=== PATIENT | female | born 1980 | race Caucasian/White ===

== ENCOUNTER 2021-05-08 16:00 | Emergency (ER) | payer OTHER, MEDICARE, SELFPAY ==
[2021-05-08 17:26] VITALS: BP 130/81; PULSE 52; RESP 16; TEMP 37.2; O2SAT 100; BMI 27.4
== END 2021-05-08 19:34 | disposition left against medical advice (07) ==
PROVIDERS: Emergency Provider Emergency Medicine; PCP Internal Medicine
DX: R51.9 Headache, unspecified (principal)
CPT/HCPCS: 99281; 99282

== ENCOUNTER 2021-07-23 10:16 | Outpatient (REF) | payer OTHER, SELFPAY ==
--- NOTE | ~2021-07-23 | XR_ITS ---
EXAMINATION: XR ANKLE, LEFT CLINICAL INFORMATION: Pain. COMPARISON: None TECHNIQUE: AP, lateral, and mortise views of the left ankle. FINDINGS: The bones and soft tissues are normal. No fracture. Alignment is anatomic. Joint spaces are maintained. No joint effusion. XR/XR ankle LT 2V IMPRESSION: Normal left ankle.
--- NOTE | ~2021-07-23 | US_ITS ---
EXAMINATION: US VENOUS ULTRASOUND WITH DOPPLER LOWER EXTREMITY, LEFT CLINICAL INFORMATION: Left leg pain COMPARISON: None TECHNIQUE: Ultrasound of the deep veins is performed from the hip to the calf with compression sonography and color and pulse Doppler assessment. Spectral analysis with color-flow imaging is performed. FINDINGS: There is normal venous compression and respiratory variation and augmented flow. The visualized common femoral vein, superficial femoral vein, profunda femoral vein, popliteal vein, and the trifurcation region shows no evidence of deep venous thrombosis. There is no popliteal fossa cyst. US/US venous duplex LE LT IMPRESSION: No DVT demonstrated in the left lower extremity.
== END 2021-07-23 10:17 | disposition home or self-care (01) ==
LOC: HO.US 10:16
PROVIDERS: PCP Internal Medicine; Visit Provider Internal Medicine
DX: M79.605 Pain in left leg (principal); M25.572 Pain in left ankle and joints of left foot
CPT/HCPCS: 73600; 93971

== ENCOUNTER 2023-05-28 11:48 | Outpatient (AMB) | payer OTHER, SELFPAY ==
[2023-05-28 11:49] VITALS: BP 114/72; PULSE 79; BMI 26.0
--- NOTE | 2023-05-28 11:49 | A.OFFPC_ITS ---
Vital Signs 05/28/23 11:49 Height 5 ft 5 in Weight 156 lb 6 oz BMI 26.0 BP 114/72 Blood Pressure Location Lt brachial Position Sitting Pulse 79 Pulse Source Pulse Oximeter Oxygen Delivery Method Room Air Intake Visit Reasons: Discuss Mental Status-Son's Allergies Penicillins Allergy (Mild, Verified 05/28/23 11:50) HIVES tramadol [Tramadol] Allergy (Unknown, Verified 05/28/23 11:50) HIVES, seizure, seizures clonidine Adverse Reaction (Mild, Verified 05/28/23 11:50) Seizure Wellbutrin Allergy (Unknown, Uncoded 05/28/23 11:50) Seizure Medication List - Last Reconciled 05/28/23 by Akbar Walton MD buprenorphine-naloxone 2-0.5 mg (Suboxone) 2 film buccal DAILY desogestrel-ethinyl estradiol 0.15-0.03 mg (Apri) 1 tab PO DAILY dextroamphetamine-amphetamine 30 mg 1 tab PO DAILY multivitamin with folic acid 400 mcg (Daily-Kate (with folic acid)) 1 tab PO DA ANASTASIIA zolpidem 10 mg PO BEDTIME PRN Tobacco use date assessed: 05/28/23 Dental Screening Dental Screen Date: 05/28/23 Did you have a dental visit in the last 12 months?: Yes Did you have a dental problem in the last 6 months where you did not have access to dental care?: No Was dental information given to patient?: Patient has dentist HPI Discuss Mental Status-Son's HPI Details wants a new psychiatrist; on suboxone, rx for ADHD and sleeping pills PFSH Medical History ADHD Attention deficit disorder IGNACIO (generalized anxiety disorder) Iron deficiency anemia due to chronic blood loss Left ankle pain Left leg pain Migraine Primary insomnia Substance abuse Surgical History History of abdominoplasty History of bilateral carpal tunnel release History of section History of cholecystectomy History of gastric bypass History of tubal ligation Mass of cervix Family History Father No problems noted. Mother No problems noted. Maternal Grandfather Diabetes Other Substance abuse Social History (Reviewed 05/28/23 @ 11:51 by TONI Taylor Housing: House Patient Tobacco Use Status: Never used Tobacco e-Cigarette/Vaping Use: Never Used Second Hand Smoke Exposure: No service: No Current occupational status: employed Cognitive needs: No Hearing needs: No Vision needs: No Questionnaire PHQ-9 Over the last 2 weeks, how often have you been bothered by any of the following problems? 1. Little interest or pleasure in doing things: nearly every day 2. Feeling down, depressed, or hopeless: nearly every day 3. Trouble falling or staying asleep, or sleeping too much: nearly every day 4. Feeling tired or having little energy: nearly every day 5. Poor appetite or overeating: nearly every day 6. Feeling bad about yourself - or that you are a failure or have let yourself or your family down: nearly every day 7. Trouble concentrating on things, such as reading the newspaper or watching television: nearly every day 8. Moving or speaking so slowly that other people could have noticed. Or the opposite - being so fidgety or restless that you have been moving around a lot more than usual: nearly every day 9. Thoughts that you would be better off or of hurting yourself in some way: not at all Total score: 24 Depression Screening Interpretation: Negative Source: Developed by Drs. Sebastián Dumas, Vida Strauss, Maximo Dow and colleagues, with an educational sherley from [employer]. Thrive Questionnaire Date Thrive assessed: 05/28/23 I am a: Patient What is your living situation today?: I have a steady place to live Within the past 12 months, did the food you bought not last and you didn't have the money to get more?: Never true Within the past 12 months, did you worry whether your food would run out before you got money to buy more?: Never true Do you have trouble paying for medicines?: No Do you have trouble getting transportation to medical appointments?: No Do you have trouble paying your heating and electricity bill?: No Do you have trouble taking care of your child, family member or friend?: No Do you have trouble with day-to-day activities such as bathing, preparing meals, shopping, managing finances, etc.?: No Are you currently unemployed and looking for a job?: No Are you interested in more education?: No Please select the resources that you would like help with: None AUDIT C Alcohol Use Questionnaire (AUDIT-C) 1. How often do you have a drink containing alcohol?: Never 3. How often do you have six or more drinks on one occasion?: Never Total Score: 0 IGNACIO-7 AMB Questionnaire IGNACIO-7 Date IGNACIO - 7 assessed: 05/28/23 Feeling nervous, anxious, or on edge: 2 = More than half the days Not being able to stop or control worryin = More than half the days Worrying too much about different things: 2 = More than half the days Trouble relaxin = More than half the days Being so restless that it is hard to sit still: 2 = More than half the days Becoming easily annoyed or irritable: 2 = More than half the days Feeling afraid as if something awful might happen: 2 = More than half the days Total IGNACIO-7 score (0-4 normal; 5-9 mild; 10-14 moderate; 15-21 severe): 14 Source: Developed by Drs. Sebastián Dumas, Vida Strauss, Maximo Dow and colleagues, with an educational sherley from [employer]. Review of Systems Const Denies chills, Denies headache(s) and Denies weight loss ENT Denies headache(s) Card Denies chest pain, Denies syncope, Denies irregular heart rhythm and Denies dyspnea Resp Denies chest congestion, Denies cough and Denies dyspnea GI Denies abdominal pain, Denies change in stool character, Denies nausea and Denies vomiting Musc Denies deformity and Denies joint swelling Neuro Denies syncope and Denies headache(s) Physical exam (Primary Care) Vital Signs: Last Vital Signs Pulse 79 05/28/23 11:49 BP 114/72 05/28/23 11:49 Oxygen Delivery Method Room Air 05/28/23 11:49 BMI result Body Mass Index 26.0 Tobacco/Smoking Status: Tobacco use Status Tobacco use date assessed 05/28/23 05/28/23 11:59 Patient Tobacco Use Status Never used Tobacco 05/28/23 11:59 e-Cigarette/Vaping Use Never Used 05/28/23 11:59 PHQ-9: PHQ-9 Score PHQ-9: Total score 24 05/28/23 11:59 Depression Screening Interpretation: Negative Thrive Assessment: Date of Thrive Assessment Date Thrive assessed 05/28/23 05/28/23 11:59 Const General: cooperative, comfortable and no acute distress HENMT Head: Yes normal to inspection Eyes General: appearance normal, both eyes and all related structures Neck Neck: Yes normal visual inspection Chest Chest palpation & inspection: normal inspection of the chest Resp Effort & Inspection: normal respiratory effort Assessment and Plan Assessment & Plan (1) Attention deficit disorder: Code(s): F98.8 - Other specified behavioral and emotional disorders with onset usually occurring in childhood and adolescence Plan: refer (2) Substance abuse: Code(s): F19.10 - Other psychoactive substance abuse, uncomplicated Plan: per clinic Orders: Orders Comprehensive [place]. Panel Fast Today N28.9 - Disorder of kidney and ureter, unspecified Lipid Panel Today E78.5 - Hyperlipidemia, unspecified Thyroid Stimulating Hormone Today E03.9 - Hypothyroidism, unspecified Complete Blood Count Auto Diff Today D64.9 - Anemia, unspecified Referrals Psychiatry Referral F43.22 - Adjustment disorder with anxiety Medications: New lorazepam 1 mg PO BID PRN 60 tabs 0RF anxiety Coding Level of Care Code Est Pt Level 4 (40919) Diagnoses Attention deficit disorder F98.8 Substance abuse F19.10 Additional Codes PHQ-9 - 20194 - PHQ-9 Billing: Y ([id number])
== END 2023-05-28 12:20 | disposition home or self-care (01) ==
PROVIDERS: PCP Internal Medicine; Visit Provider Internal Medicine
DX: F98.8 Other specified behavioral and emotional disorders with onset usually occurring in childhood and adolescence (principal); F19.10 Other psychoactive substance abuse, uncomplicated
CPT/HCPCS: 99214

== ENCOUNTER 2023-06-09 10:36 | Outpatient (AMB) | payer OTHER, SELFPAY ==
[2023-06-09 10:46] VITALS: BP 110/60; PULSE 75; O2SAT 99
--- NOTE | 2023-06-09 10:46 | A.OFFPC_ITS ---
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 per policy Accompanied by: Self / Same As Patient Allergies Penicillins Allergy (Mild, Verified 06/09/23 10:46) HIVES tramadol [Tramadol] Allergy (Unknown, Verified 06/09/23 10:46) HIVES, seizure, seizures clonidine Adverse Reaction (Mild, Verified 06/09/23 10:46) Seizure Wellbutrin Allergy (Unknown, Uncoded 06/09/23 10:46) Seizure Medication List - Last Reconciled 06/09/23 by Akbar Walton MD buprenorphine-naloxone 2-0.5 mg (Suboxone) 2 film buccal DAILY desogestrel-ethinyl estradiol 0.15-0.03 mg (Apri) 1 tab PO DAILY dextroamphetamine-amphetamine 30 mg 1 tab PO DAILY lorazepam 1 mg PO BID PRN multivitamin with folic acid 400 mcg (Daily-Kate (with folic acid)) 1 tab PO DAILY zolpidem 10 mg PO BEDTIME PRN Tobacco use date assessed: 05/28/23 Dental Screening Dental Screen Date: 06/09/23 Did you have a dental visit in the last 12 months?: Yes Did you have a dental problem in the last 6 months where you did not have access to dental care?: No Was dental information given to patient?: Patient has dentist HPI Pe HPI Details substance abuse on suboxone; ADHD and sees psych PFSH Medical History ADHD Attention deficit disorder IGNACIO (generalized anxiety disorder) Iron deficiency anemia due to chronic blood loss Left ankle pain Left leg pain Migraine Primary insomnia Substance abuse Surgical History History of abdominoplasty History of bilateral carpal tunnel release History of section History of cholecystectomy History of gastric bypass History of tubal ligation Mass of cervix Family History Father No problems noted. Mother No problems noted. Maternal Grandfather Diabetes Other Substance abuse Social History Housing: House Patient Tobacco Use Status: Never used Tobacco e-Cigarette/Vaping Use: Never Used Second Hand Smoke Exposure: No service: No Current occupational status: employed Cognitive needs: No Hearing needs: No Vision needs: No Questionnaire PHQ-9 Over the last 2 weeks, how often have you been bothered by any of the following problems? 1. Little interest or pleasure in doing things: nearly every day 2. Feeling down, depressed, or hopeless: nearly every day 3. Trouble falling or staying asleep, or sleeping too much: nearly every day 4. Feeling tired or having little energy: nearly every day 5. Poor appetite or overeating: nearly every day 6. Feeling bad about yourself - or that you are a failure or have let yourself or your family down: nearly every day 7. Trouble concentrating on things, such as reading the newspaper or watching television: nearly every day 8. Moving or speaking so slowly that other people could have noticed. Or the opposite - being so fidgety or restless that you have been moving around a lot more than usual: nearly every day 9. Thoughts that you would be better off or of hurting yourself in some way: not at all Total score: 24 Depression Screening Interpretation: Negative 72274 - PHQ-9 Billing: Yes Source: Developed by Drs. Sebastián Dumas, Maximo Maurer and colleagues, with an educational sherley from [employer]. Thrive Questionnaire Date Thrive assessed: 05/28/23 AUDIT C Alcohol Use Questionnaire (AUDIT-C) 1. How often do you have a drink containing alcohol?: Never 3. How often do you have six or more drinks on one occasion?: Never Total Score: 0 IGNACIO-7 AMB Questionnaire IGNACIO-7 Date IGNACIO - 7 assessed: 05/28/23 Source: Developed by Drs. Sebastián Dumas, Maximo Maurer and colleagues, with an educational sherley from [employer]. Review of Systems Const Denies chills, Denies fatigue, Denies headache(s) and Denies weight loss Eyes Denies change in vision, Denies diplopia and Denies eye pain ENT Denies vertigo, Denies dizziness, Denies headache(s) and Denies nasal discharge Card Denies chest pain, Denies rapid heart rate and Denies dyspnea on exertion Resp Denies chest congestion, Denies cough, Denies pain with cough and Denies dyspnea on exertion GI Denies abdominal pain, Denies hematochezia and Denies change in bowel habits Musc Denies myalgias, Denies arthralgias and Denies joint swelling Skin/Breast Denies lesions and Denies unusual bruising Neuro Denies vertigo, Denies dizziness, Denies headache(s) and Denies focal weakness Endo Denies fatigue Physical exam (Primary Care) Vital Signs: Last Vital Signs Pulse 75 06/09/23 10:46 BP 110/60 06/09/23 10:46 Pulse Ox 99 06/09/23 10:46 Oxygen Delivery Method Room Air 06/09/23 10:46 Tobacco/Smoking Status: Tobacco use Status Tobacco use date assessed 05/28/23 06/09/23 10:51 Patient Tobacco Use Status Never used Tobacco 06/09/23 10:51 e-Cigarette/Vaping Use Never Used 06/09/23 10:51 PHQ-9: PHQ-9 Score PHQ-9: Total score 24 06/09/23 10:51 Depression Screening Interpretation: Negative Thrive Assessment: Date of Thrive Assessment Date Thrive assessed 05/28/23 06/09/23 10:51 Const General: cooperative, healthy appearing and no acute distress Orientation/consciousness: oriented to person, oriented to place and oriented to time [facility] Head: Yes normal to inspection, Yes normocephalic and Yes atraumatic Mouth: Normal oral and palatal mucosa present and tongue normal Throat: Yes posterior oropharynx normal and Yes uvula midline Eyes General: appearance normal, both eyes and all related structures Neck Neck: Yes normal visual inspection, Yes full ROM and Yes no lymphadenopathy Thyroid: Thyroid normal Carotids: normal carotid upstroke Chest Chest palpation & inspection: normal inspection of the chest Resp Effort & Inspection: normal respiratory effort and able to speak in complete sentences Auscultation: clear to auscultation bilaterally Cardio Jugular venous distension: no JVD Palpation: normal PMI Rate: regular rate Rhythm: regular rhythm Heart sounds: S1 normal heart sound present and S2 normal heart sound present GI Inspection: Yes normal to inspection Palpation (GI): Soft to palpation and No hepatosplenomegaly present Auscultation: normal bowel sounds General: Yes no CVA tenderness Back/Spine/Pelvis Back: no CVA tenderness Skin General skin exam: no rashes or lesions noted Neuro General: oriented to person, oriented to place and oriented to time Extrem General: Yes normal to inspection and Yes full ROM Assessment and Plan Assessment & Plan (1) Physical exam: Code(s): Z00.00 - Encounter for general adult medical examination without abnormal findings Plan: do labs (2) Substance abuse: Code(s): F19.10 - Other psychoactive substance abuse, uncomplicated Plan: stable (3) Attention deficit disorder: Code(s): F98.8 - Other specified behavioral and emotional disorders with onset usually occurring in childhood and adolescence Plan: per psych Coding Level of Care Code Est Pt Prev Care 40-64y(47062) Diagnoses Physical exam Z00.00 Substance abuse F19.10 Attention deficit disorder F98.8
== END 2023-06-09 11:07 | disposition home or self-care (01) ==
PROVIDERS: PCP Internal Medicine; Visit Provider Internal Medicine
DX: Z00.00 Encounter for general adult medical examination without abnormal findings (principal); F19.10 Other psychoactive substance abuse, uncomplicated; F98.8 Other specified behavioral and emotional disorders with onset usually occurring in childhood and adolescence
CPT/HCPCS: 99396

== ENCOUNTER 2024-01-27 10:33 | Outpatient (AMB) | payer MEDICARE, SELFPAY ==
[2024-01-27 10:35] VITALS: BP 122/80; PULSE 90; O2SAT 100; BMI 27.3
--- NOTE | 2024-01-27 10:35 | A.OFFPC_ITS ---
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 Accompanied by: Self / Same As Patient Allergies Penicillins Allergy (Mild, Verified 01/27/24 10:36) HIVES tramadol [Tramadol] Allergy (Unknown, Verified 01/27/24 10:36) HIVES, seizure, seizures clonidine Adverse Reaction (Mild, Verified 01/27/24 10:36) Seizure Wellbutrin Allergy (Unknown, Uncoded 01/27/24 10:36) Seizure Medication List - Last Reconciled 01/28/24 by Akbar Walton MD buprenorphine-naloxone 2-0.5 mg (Suboxone) 2 film buccal DAILY desogestrel-ethinyl estradiol 0.15-0.03 mg (Apri) 1 tab PO DAILY dextroamphetamine-amphetamine 30 mg 1 tab PO DAILY lorazepam 1 mg PO BID PRN multivitamin with folic acid 400 mcg (Daily-Kate (with folic acid)) 1 tab PO DAILY zolpidem 10 mg PO BEDTIME PRN Tobacco use date assessed: 01/27/24 Dental Screening Dental Screen Date: 01/27/24 Did you have a dental visit in the last 12 months?: Yes Did you have a dental problem in the last 6 months where you did not have access to dental care?: No Was dental information given to patient?: Patient has dentist HPI Follow-Up HPI Details substance abuse on rx; seems to be doing well [facility] Medical History ADHD Attention deficit disorder IGNACIO (generalized anxiety disorder) Iron deficiency anemia due to chronic blood loss Left ankle pain Left leg pain Migraine Primary insomnia Substance abuse Surgical History History of abdominoplasty History of bilateral carpal tunnel release History of section History of cholecystectomy History of gastric bypass History of tubal ligation Mass of cervix Family History Father No problems noted. Mother No problems noted. Maternal Grandfather Diabetes Other Substance abuse Social History Housing: House Patient Tobacco Use Status: Never used Tobacco e-Cigarette/Vaping Use: Never Used Second Hand Smoke Exposure: No service: No Current occupational status: employed Cognitive needs: No Hearing needs: No Vision needs: No Questionnaire PHQ-9 Over the last 2 weeks, how often have you been bothered by any of the following problems? 1. Little interest or pleasure in doing things: nearly every day 2. Feeling down, depressed, or hopeless: nearly every day 3. Trouble falling or staying asleep, or sleeping too much: nearly every day 4. Feeling tired or having little energy: nearly every day 5. Poor appetite or overeating: nearly every day 6. Feeling bad about yourself - or that you are a failure or have let yourself or your family down: nearly every day 7. Trouble concentrating on things, such as reading the newspaper or watching television: nearly every day 8. Moving or speaking so slowly that other people could have noticed. Or the opposite - being so fidgety or restless that you have been moving around a lot more than usual: nearly every day 9. Thoughts that you would be better off or of hurting yourself in some way: not at all Total score: 24 Depression Screening Interpretation: Negative Depression Screening Done: Yes 41427 - PHQ-9 Billing: Yes Source: Developed by Drs. Sebastián Dumas, Vida Strauss, Maximo Dow and colleagues, with an educational sherley from [employer] Thrive Questionnaire Date Thrive assessed: 01/27/24 I am a: Patient What is your living situation today?: I have a steady place to live Within the past 12 months, did the food you bought not last and you didn't have the money to get more?: Never true Within the past 12 months, did you worry whether your food would run out before you got money to buy more?: Never true Do you have trouble paying for medicines?: No Do you have trouble getting transportation to medical appointments?: No Do you have trouble paying your heating and electricity bill?: No Do you have trouble taking care of your child, family member or friend?: No Do you have trouble with day-to-day activities such as bathing, preparing meals, shopping, managing finances, etc.?: No Are you currently unemployed and looking for a job?: No Are you interested in more education?: No Please select the resources that you would like help with: None THRIVE Score: 0 AUDIT C Alcohol Use Questionnaire (AUDIT-C) 1. How often do you have a drink containing alcohol?: Never 3. How often do you have six or more drinks on one occasion?: Never Total Score: 0 IGNACIO-7 AMB Questionnaire IGNACIO-7 Date IGNACIO - 7 assessed: 01/27/24 Feeling nervous, anxious, or on edge: 0 = Not at all Not being able to stop or control worryin = Not at all Worrying too much about different things: 0 = Not at all Trouble relaxin = Not at all Being so restless that it is hard to sit still: 0 = Not at all Becoming easily annoyed or irritable: 0 = Not at all Feeling afraid as if something awful might happen: 0 = Not at all Total IGNACIO-7 score (0-4 normal; 5-9 mild; 10-14 moderate; 15-21 severe): 0 Source: Developed by Drs. Sebastián Dumas, Vida Strauss, Maximo Dow and colleagues, with an educational sherley from [employer]. Review of Systems Const Denies chills, Denies headache(s) and Denies weight loss ENT Denies headache(s) Card Denies chest pain, Denies syncope, Denies irregular heart rhythm and Denies dyspnea Resp Denies chest congestion, Denies cough and Denies dyspnea GI Denies abdominal pain, Denies change in stool character, Denies nausea and Denies vomiting Musc Denies deformity and Denies joint swelling Neuro Denies syncope and Denies headache(s) Physical exam (Primary Care) Vital Signs: Last Vital Signs Pulse 90 01/27/24 10:35 BP 122/80 01/27/24 10:35 Pulse Ox 100 01/27/24 10:35 Oxygen Delivery Method Room Air 01/27/24 10:35 BMI result Body Mass Index 27.3 Tobacco/Smoking Status: Tobacco use Status Tobacco use date assessed 01/27/24 01/27/24 10:37 Patient Tobacco Use Status Never used Tobacco 01/27/24 10:37 e-Cigarette/Vaping Use Never Used 01/27/24 10:37 PHQ-9: PHQ-9 Score PHQ-9: Total score 24 01/27/24 10:37 Depression Screening Interpretation: Negative Thrive Assessment: Date of Thrive Assessment Date Thrive assessed 01/27/24 01/27/24 10:37 Const General: cooperative, comfortable, no acute distress and alert Neck Neck: Yes no lymphadenopathy Thyroid: Thyroid normal Resp Effort & Inspection: normal respiratory effort Auscultation: clear to auscultation bilaterally Percussion: percussion normal Cardio Jugular venous distension: no JVD Palpation: normal PMI Rate: regular rate Rhythm: regular rhythm Heart sounds: S1 normal heart sound present and S2 normal heart sound present GI Inspection: Yes normal to inspection Palpation (GI): No hepatosplenomegaly present Skin General skin exam: no rashes or lesions noted Extrem General: Yes no clubbing, cyanosis or edema Assessment and Plan Assessment & Plan (1) Substance abuse: Code(s): F19.10 - Other psychoactive substance abuse, uncomplicated Plan: stable; same rx Medications: Refilled lorazepam 1 mg PO BID PRN 60 tabs 0RF anxiety Coding Level of Care Code Est Pt Level 3 (47772) Diagnoses Substance abuse F19.10
== END 2024-01-27 11:58 | disposition home or self-care (01) ==
PROVIDERS: PCP Internal Medicine; Visit Provider Internal Medicine
DX: F19.10 Other psychoactive substance abuse, uncomplicated (principal)
CPT/HCPCS: 99213

== ENCOUNTER 2024-02-26 10:56 | Outpatient (REF) | payer MEDICARE, SELFPAY | END 2024-02-26 10:57 | disposition home or self-care (01) | LOC: HO.LAB 10:56 | PROVIDERS: PCP Internal Medicine; Visit Provider Internal Medicine | DX: F41.1 Generalized anxiety disorder (principal) | CPT/HCPCS: 87086; 87088; 87186 ==

== ENCOUNTER 2024-04-01 13:02 | Outpatient (AMB) | payer MEDICARE, SELFPAY ==
[2024-04-01 13:06] VITALS: BP 102/60; PULSE 66; O2SAT 99; BMI 28.0
--- NOTE | 2024-04-01 13:06 | MHC.PC.OV ---
Vital Signs 04/01/24 13:06 Height 5 ft 5 in Weight 168 lb BMI 28.0 BP 102/60 Blood Pressure Location Lt brachial Position Sitting Pulse 66 Pulse Source Pulse Oximeter Pulse Oximetry (%) 99 Oxygen Delivery Method Room Air Intake Visit Reasons: [facility] 03/28/24 edema Central Supply Worker Required: No Tack Cutter: Not Required per policy Accompanied by: Self / Same As Patient Allergies Penicillins Allergy (Mild, Verified 04/01/24 13:06) HIVES tramadol [Tramadol] Allergy (Unknown, Verified 04/01/24 13:06) HIVES, seizure, seizures clonidine Adverse Reaction (Mild, Verified 04/01/24 13:06) Seizure Wellbutrin Allergy (Unknown, Uncoded 04/01/24 13:06) Seizure Medication List - Last Reconciled 04/04/24 by Akbar Walton MD buprenorphine-naloxone 2-0.5 mg (Suboxone) 2 film buccal DAILY desogestrel-ethinyl estradiol 0.15-0.03 mg (Apri) 1 tab PO DAILY dextroamphetamine-amphetamine 30 mg 1 tab PO DAILY lorazepam 1 mg PO BID PRN multivitamin with folic acid 400 mcg (Daily-Kate (with folic acid)) 1 tab PO DAILY zolpidem 10 mg PO BEDTIME PRN Tobacco use date assessed: 01/27/24 Dental Screening Dental Screen Date: 01/27/24 HPI [facility] 03/28/24 edema HPI Details chronic anemia; had 4U prcs at [facility] [place]; iron def duse to gastric bypass [facility] Medical History ADHD Attention deficit disorder IGNACIO (generalized anxiety disorder) Iron deficiency anemia due to chronic blood loss Left ankle pain Left leg pain Migraine Primary insomnia Substance abuse Surgical History History of abdominoplasty History of bilateral carpal tunnel release History of section History of cholecystectomy History of gastric bypass History of tubal ligation Mass of cervix Family History Father No problems noted. Mother No problems noted. Maternal Grandfather Diabetes Other Substance abuse Social History Housing: House Patient Tobacco Use Status: Never used Tobacco e-Cigarette/Vaping Use: Never Used Second Hand Smoke Exposure: No service: No Current occupational status: employed Cognitive needs: No Hearing needs: No Vision needs: No Questionnaire Thrive Questionnaire Date Thrive assessed: 01/27/24 IGNACIO-7 AMB Questionnaire IGNACIO-7 Date IGNACIO - 7 assessed: 01/27/24 Source: Developed by Drs. Sebastián Dumas, Vida Strauss, Maximo Dow and colleagues, with an educational sherley from [employer]. Review of Systems Const Denies chills, Denies headache(s) and Denies weight loss ENT Denies headache(s) Card Denies chest pain, Denies syncope, Denies irregular heart rhythm and Denies dyspnea Resp Denies chest congestion, Denies cough and Denies dyspnea GI Denies abdominal pain, Denies change in stool character, Denies nausea and Denies vomiting Musc Denies deformity and Denies joint swelling Neuro Denies syncope and Denies headache(s) Physical exam (Primary Care) Vital Signs: Last Vital Signs Pulse 66 04/01/24 13:06 BP 102/60 04/01/24 13:06 Pulse Ox 99 04/01/24 13:06 Oxygen Delivery Method Room Air 04/01/24 13:06 BMI result Body Mass Index 28.0 Tobacco/Smoking Status: Tobacco use Status Tobacco use date assessed 01/27/24 04/01/24 13:07 Patient Tobacco Use Status Never used Tobacco 04/01/24 13:07 e-Cigarette/Vaping Use Never Used 04/01/24 13:07 Thrive Assessment: Date of Thrive Assessment Date Thrive assessed 01/27/24 04/01/24 13:07 Const General: cooperative, comfortable, no acute distress and alert Neck Neck: Yes no lymphadenopathy Thyroid: Thyroid normal Resp Effort & Inspection: normal respiratory effort Auscultation: clear to auscultation bilaterally Percussion: percussion normal Cardio Jugular venous distension: no JVD Palpation: normal PMI Rate: regular rate Rhythm: regular rhythm Heart sounds: S1 normal heart sound present and S2 normal heart sound present GI Inspection: Yes normal to inspection Palpation (GI): No hepatosplenomegaly present Skin General skin exam: no rashes or lesions noted Extrem General: Yes no clubbing, cyanosis or edema Assessment and Plan Assessment & Plan (1) Iron deficiency anemia due to chronic blood loss: Code(s): D50.0 - Iron deficiency anemia secondary to blood loss (chronic) Plan: same rx; monitor Orders: Orders Basic Metabolic Panel 04/01/24 R60.0 - Localized edema Complete Blood Count Auto Diff 04/01/24 Z13.0 - Encounter for screening for diseases of the blood and blood-forming organs and certain disorders involving the immune mechanism Coding Level of Care Code Est Pt Level 3 (56120) Diagnoses Iron deficiency anemia due to chronic blood loss D50.0
== END 2024-04-01 16:24 | disposition home or self-care (01) ==
PROVIDERS: PCP Internal Medicine; Visit Provider Internal Medicine
DX: D50.0 Iron deficiency anemia secondary to blood loss (chronic) (principal)
CPT/HCPCS: 99213

== ENCOUNTER 2024-04-01 13:32 | Outpatient (REF) | payer MEDICARE, SELFPAY ==
[2024-04-01 14:07] LABS: Basophils Percent Auto 0.7 % (0-2); Eosinophils Absolute Auto 0.1 X10*3/uL (0.0-0.4); Eosinophils Percent Auto 2.8 % (0-4); Hematocrit 29.5 % (37.0-47.0); Imm Gran Abs Auto 0.01 X10*3/uL (0.00-0.03); Imm Gran Pct Auto 0.2 % (0.0-0.4); Lymphocytes Absolute Auto 1.4 X10*3/uL (1.2-4.9); Lymphocytes Percent Auto 32.5 % (20-40); MANUAL DIFF FLAG SCAN; Mean Corpuscular HGB Conc 27.1 g/dl (31.0-35.0); Mean Corpuscular Hemoglobin 17.8 pg (27.0-33.0); Mean Corpuscular Volume 65.7 fL (80.0-98.0); Mean Platelet Volume 9.5 fL (9.4-12.3); Monocytes Absolute Auto 0.3 X10*3/uL (0.1-1.2); Monocytes Percent Auto 7.1 % (2-11); Neutrophils Absolute Auto 2.5 x10*3/uL (2.0-8.3); Neutrophils Percent Auto 56.7 % (45-73); PLT CLUMP 1; Red Blood Count 4.49 X10*6/uL (4.20-5.50); Red Cell Distribution Width 21.3 % (11.0-16.0); SCAN SMEAR FLAG 1
[2024-04-01 14:08] LABS: White Blood Count 4.3 X10*3/uL (4.8-10.8)
[2024-04-01 14:26] LABS: Platelet Count 225 X10*3/uL (160-400); SLIDE REVIEW VERIFIED
[2024-04-01 14:40] LABS: Anion Gap 13 (12-20); Blood Urea Nitrogen 11 mg/dL (9-16); Calcium 8.7 mg/dL (8.4-10.2); Carbon Dioxide 28 mmol/L (22-29); Chloride 102 mmol/L (96-108); Estimated Glomerular Filt Rate > 60; Glucose Random 86 mg/dL (60-115); Potassium 4.5 mmol/L (3.3-5.1); Sodium 138 mmol/L (135-145)
== END 2024-04-01 13:33 | disposition home or self-care (01) ==
LOC: HO.LAB 13:32
PROVIDERS: PCP Internal Medicine; Visit Provider Internal Medicine
DX: R60.0 Localized edema (principal); Z13.0 Encounter for screening for diseases of the blood and blood-forming organs and certain disorders involving the immune mechanism
CPT/HCPCS: 36415; 80048; 85025

== ENCOUNTER → 2024-06-15 09:45 | Outpatient (BNVA) | payer MEDICARE, SELFPAY | PROVIDERS: PCP Internal Medicine ==

== ENCOUNTER 2024-06-22 10:45 | Outpatient (AMB) | payer MEDICARE, SELFPAY ==
--- NOTE | 2024-06-22 10:45 | MHC.PC.OV ---
Vital Signs 06/22/24 10:49 Height 5 ft 5 in Weight 179 lb BMI 29.8 BP 140/80 H Blood Pressure Location Lt brachial Position Sitting Pulse 74 Pulse Source Pulse Oximeter Pulse Oximetry (%) 100 Oxygen Delivery Method Room Air Intake Visit Reasons: Bi-lateral edema on feet Intake Note: pt states bilateral let swelling with no relief. Pt states incontinence X2 months Allergies Penicillins Allergy (Mild, Verified 06/22/24 11:07) HIVES tramadol [Tramadol] Allergy (Unknown, Verified 06/22/24 11:07) HIVES, seizure, seizures clonidine Adverse Reaction (Mild, Verified 06/22/24 11:07) Seizure Wellbutrin Allergy (Unknown, Uncoded 06/22/24 11:07) Seizure Medication List - Last Reconciled 06/22/24 by Monica Esquivel PA-C buprenorphine-naloxone 2-0.5 mg (Suboxone) 2 film buccal DAILY dextroamphetamine-amphetamine 30 mg 1 tab PO DAILY lemborexant (Dayvigo) 10 mg PO BEDTIME multivitamin with folic acid 400 mcg (Daily-Kate (with folic acid)) 1 tab PO DAILY Tobacco use date assessed: 01/27/24 Dental Screening Dental Screen Date: 01/27/24 HPI Bi-lateral edema on feet HPI Details 43-year-old female with past medical history of ADHD, generalized anxiety disorder, iron deficiency anemia, substance use disorder last seen by Dr. Walton coming in for acute problem.In review of the notes, patient was seen in [facility] 03/28/2024 for leg swelling and shortness of breath on exertion found to be profoundly anemic and given 1 unit packed red blood cell with normalization of H&H. Hospital advised outpatient workup for anemia and recommended outpatient echocardiogram and referral to Cardiology. She does have an appointment scheduled for cardiology coming up in June. Patient tells us today she has been having swelling in the calves and feet which we will occasionally improve and does improve with compression stockings. She has not yet had her echocardiogram scheduled. She also mentioned she has been been having episodes of urinary incontinence and feels she can not tell when she has to use the bathroom and we will just void urine. Has been going on for several months and has identified any triggers or relieving factors. COUNTS INCLUDE 234 BEDS AT THE [facility] Medical History ADHD Attention deficit disorder IGNACIO (generalized anxiety disorder) Iron deficiency anemia due to chronic blood loss Left ankle pain Left leg pain Migraine Primary insomnia Substance abuse Surgical History History of abdominoplasty History of bilateral carpal tunnel release History of section History of cholecystectomy History of gastric bypass History of tubal ligation Mass of cervix Family History Father No problems noted. Mother No problems noted. Maternal Grandfather Diabetes Other Substance abuse Social History Housing: House Patient Tobacco Use Status: Never used Tobacco e-Cigarette/Vaping Use: Never Used Second Hand Smoke Exposure: No service: No Current occupational status: employed Cognitive needs: No Hearing needs: No Vision needs: No Questionnaire Thrive Questionnaire Date Thrive assessed: 01/27/24 IGNACIO-7 AMB Questionnaire IGNACIO-7 Date IGNACIO - 7 assessed: 01/27/24 Source: Developed by Drs. Sebastián Dumas, Vida Strauss, Maximo Dow and colleagues, with an educational sherley from [employer]. Review of Systems Const Denies chills, Denies fatigue and Denies fever(s) Eyes Reports no additional complaints ENT Reports no additional complaints Card Denies chest pain, Denies irregular heart rhythm, Reports leg edema, Denies lightheadedness and Denies dyspnea Resp Denies cough and Denies dyspnea GI Reports no additional complaints Reports as per HPI Musc Reports no additional complaints Endo Denies fatigue Physical exam (Primary Care) Vital Signs: Last Vital Signs Pulse 74 06/22/24 10:49 BP 140/80 H 06/22/24 10:49 Pulse Ox 100 06/22/24 10:49 Oxygen Delivery Method Room Air 06/22/24 10:49 BMI result Body Mass Index 29.8 Tobacco/Smoking Status: Tobacco use Status Tobacco use date assessed 01/27/24 06/22/24 10:46 Patient Tobacco Use Status Never used Tobacco 06/22/24 10:46 e-Cigarette/Vaping Use Never Used 06/22/24 10:46 Thrive Assessment: Date of Thrive Assessment Date Thrive assessed 01/27/24 06/22/24 10:46 Const General: cooperative, healthy appearing, comfortable and no acute distress Orientation/consciousness: patient oriented x3 HENKS Head: Yes normocephalic Ears: hearing grossly normal bilaterally General nose exam: Normal external nose present Eyes General: appearance normal, both eyes and all related structures Conjunctivae: conjunctivae normal Neck Neck: Yes full ROM and Yes no lymphadenopathy Resp Effort & Inspection: normal respiratory effort Auscultation: clear to auscultation bilaterally, no crackles, no rales, no rhonchi and no wheezes Cardio Rate: regular rate Rhythm: regular rhythm GI Palpation (GI): Soft to palpation, not firm, nontender, no guarding and not rigid General: Yes no CVA tenderness Back/Spine/Pelvis Back: no CVA tenderness Skin General skin exam: no rashes or lesions noted Neuro General: patient oriented x3 Gait exam (Neuro): Normal gait present Extrem Other: Bilateral nonpitting edema of lower extremities with intact pulses, strength, sensation. No redness or warmth of bilateral calves. General: Yes normal to inspection, Yes full ROM and No edema Psych Affect: normal affect Attitude: cooperative Insight: Good insight present (Psych) Judgement: Good judgement present (Psych) Assessment and Plan Assessment & Plan (1) Edema leg: Code(s): R60.0 - Localized edema Plan: Patient has been having chronic nonpitting bilateral leg edema for several months that will wax and wane. She was seen by [facility] and was advised to have outpatient echocardiogram which order was placed today. She is also scheduled to see Cardiology this June. Advised patient to use compression stockings, elevate the legs, and exercise as tolerated. (2) Anemia: Code(s): D64.9 - Anemia, unspecified Plan: Ordered for updated blood work including vitamin B12, folate, iron panel for further evaluation of anemia. Patient is status post gastric bypass which could be a contributing factor to her anemia. In the hospital she was told she did not respond to oral iron and would potentially need iron infusions in the future. Consider referral to Hematology. (3) Urinary incontinence: Code(s): R32 - Unspecified urinary incontinence Plan: Patient describes symptoms of possible overflow incontinence we will order for urinalysis and can consider medical management or further imaging. Plan This note was constructed using voice recognition software. While every effort has been made to ensure accuracy and geospatial program management officer, still areas may have been included sometimes these areas may affect the content or meeting of the given symptoms. Total time spent caring for the patient today was 30 minutes. This includes time spent before the visit reviewing the chart, time spent during the visit, and time spent after the visit and documentation. Orders: Orders CA echo transthoracic complete Today D50.0 - Iron deficiency anemia secondary to blood loss (chronic), R60.0 - Localized edema Lipid Panel Today E78.5 - Hyperlipidemia, unspecified TSH reflex Free T4 Today Z00.00 - Encounter for general adult medical examination without abnormal findings IRON PROFILE Today D50.0 - Iron deficiency anemia secondary to blood loss (chronic) Complete Blood Count Auto Diff Today D64.9 - Anemia, unspecified Comprehensive [place]. Panel Fast Today N28.9 - Disorder of kidney and ureter, unspecified Free T4 (Free Thyroxine) Today Z00.00 - Encounter for general adult medical examination without abnormal findings Vitamin B12 and Folate Today Z00.00 - Encounter for general adult medical examination without abnormal findings Vitamin D 25-OH (D2 and D3) Today Z00.00 - Encounter for general adult medical examination without abnormal findings Magnesium Today R60.0 - Localized edema UA CC w/rflx Micro + Cult Today R35.89 - Other polyuria Coding Level of Care Code Est Pt Level 4 (14928) Diagnoses Edema leg R60.0 Anemia D64.9 Urinary incontinence R32
[2024-06-22 10:49] VITALS: BP 140/80; PULSE 74; O2SAT 100; BMI 29.8
== END 2024-06-22 11:56 | disposition home or self-care (01) ==
PROVIDERS: PCP Internal Medicine
DX: R60.0 Localized edema (principal); D64.9 Anemia, unspecified; R32 Unspecified urinary incontinence

== ENCOUNTER → 2024-06-22 10:45 | Outpatient (BNVA) | payer MEDICARE, SELFPAY | PROVIDERS: PCP Internal Medicine | DX: R60.0 Localized edema (principal); D64.9 Anemia, unspecified; R32 Unspecified urinary incontinence | CPT/HCPCS: 99212 ==

== ENCOUNTER 2024-06-27 10:22 | Outpatient (REF) | payer MEDICARE, SELFPAY ==
[2024-06-27 10:39] LABS: MANUAL DIFF FLAG NO
[2024-06-27 11:03] LABS: Basophils Percent Auto 0.8 % (0-2); Eosinophils Absolute Auto 0.1 X10*3/uL (0.0-0.4); Eosinophils Percent Auto 2.3 % (0-4); Hematocrit 29.7 % (37.0-47.0); Hemoglobin 7.9 g/dl (12.0-16.0); Imm Gran Abs Auto 0.01 X10*3/uL (0.00-0.03); Imm Gran Pct Auto 0.3 % (0.0-0.4); Lymphocytes Absolute Auto 1.1 X10*3/uL (1.2-4.9); Mean Corpuscular HGB Conc 26.6 g/dl (31.0-35.0); Mean Corpuscular Hemoglobin 17.6 pg (27.0-33.0); Mean Corpuscular Volume 66.3 fL (80.0-98.0); Monocytes Absolute Auto 0.3 X10*3/uL (0.1-1.2); Monocytes Percent Auto 8.7 % (2-11); Neutrophils Percent Auto 56.9 % (45-73); Platelet Count 240 X10*3/uL (160-400); Red Blood Count 4.48 X10*6/uL (4.20-5.50); Red Cell Distribution Width 17.2 % (11.0-16.0); White Blood Count 3.6 X10*3/uL (4.8-10.8)
[2024-06-27 11:48] LABS: Alanine Aminotransferase 21 U/L (0-31); Albumin Level 4.7 g/dL (3.5-5.0); Alkaline Phosphatase 83 U/L (39-117); Anion Gap 14 (12-20); Aspartate Amino Transferase 31 U/L (5-31); Bilirubin Total 0.4 mg/dL (0.0-1.0); Blood Urea Nitrogen 10 mg/dL (9-16); Calcium 9.2 mg/dL (8.4-10.2); Carbon Dioxide 26 mmol/L (22-29); Chloride 103 mmol/L (96-108); Cholesterol 199 mg/dL (<200); Estimated Glomerular Filt Rate > 60; Glucose Fasting 74 mg/dL (60-99); HDL Cholesterol 78 mg/dL (>40); Iron 24 mcg/dL (30-160); LDL Cholesterol Calculated 107 mg/dL (<100); Magnesium 2.2 mg/dL (1.6-2.6); Percent Iron Saturation 5 % (15-50); Potassium 4.3 mmol/L (3.3-5.1); Sodium 139 mmol/L (135-145); Total Iron Binding Capacity 524 mcg/dL (228-428); Total Protein 8.3 g/dL (6.5-8.0); Triglycerides 72 mg/dL (<150); Unsaturated Iron Binding > 500 ug/dL
[2024-06-27 11:55] LABS: Free T4 (Free Thyroxine) 0.82 ng/dL (0.71-1.85); TSH reflex Free T4 1.22 uIU/mL (0.32-4.0)
[2024-06-27 12:04] LABS: Folate 12.8 ng/mL (> or = 4.0); Vitamin B12 405 pg/mL (200-900)
[2024-06-27 12:12] LABS: Appearance Urine Cloudy; Color Urine Yellow; Glucose Urine UA Negative (Negative); Leukocyte Esterase Urine Large (3+) (Negative); Nitrite Urine Positive (Negative); PH 7.5 (5.0-9.0); UMIC TRIGGER UACC YES; Urine Blood Negative (Negative); Urine Ketones Negative (Negative); Urine Protein Negative (Neg-Trace)
[2024-06-27 12:26] LABS: Bacteria Urine 4+ (None Seen); Hyaline Casts Urine 0-2 /LPF (0-2); RBC Urine 0-2 /HPF (0-2); Squamous Epithelial Cell Urine 0-2 /HPF (0-2); UACC Culture Trigger YES; WBC Urine 21-50 /HPF (0-5)
[2024-06-30 13:32] LABS: Vitamin D 25-OH, D2 <4 ng/mL; Vitamin D 25-OH, D3 22 ng/mL; Vitamin D 25-OH, Total 22 ng/mL (30-100)
== END 2024-06-27 10:23 | disposition home or self-care (01) ==
LOC: HO.LAB 10:22
PROVIDERS: PCP Internal Medicine
DX: Z00.00 Encounter for general adult medical examination without abnormal findings (principal); D64.9 Anemia, unspecified; E78.5 Hyperlipidemia, unspecified; D50.0 Iron deficiency anemia secondary to blood loss (chronic); N28.9 Disorder of kidney and ureter, unspecified; R60.0 Localized edema
CPT/HCPCS: 36415; 80053; 80061; 81001; 81003; 82306; 82607; 82746; 83540; 83735; 84439; 84443; 85025; 87086; 87088; 87186

== ENCOUNTER 2024-06-28 14:15 | Outpatient (AMB) | payer MEDICARE, SELFPAY ==
[2024-06-28 14:21] VITALS: BP 124/66; PULSE 85; O2SAT 99; BMI 28.0
--- NOTE | 2024-06-28 14:21 | MHC.PC.OV ---
Vital Signs 06/28/24 14:21 Height 5 ft 5 in Weight 168 lb BMI 28.0 BP 124/66 Blood Pressure Location Lt brachial Position Sitting Pulse 85 Pulse Source Pulse Oximeter Pulse Oximetry (%) 99 Oxygen Delivery Method Room Air Intake Visit Reasons: PE Animal Care Worker Required: No Accompanied by: Self / Same As Patient Allergies Penicillins Allergy (Mild, Verified 06/22/24 11:07) HIVES tramadol [Tramadol] Allergy (Unknown, Verified 06/22/24 11:07) HIVES, seizure, seizures clonidine Adverse Reaction (Mild, Verified 06/22/24 11:07) Seizure Wellbutrin Allergy (Unknown, Uncoded 06/22/24 11:07) Seizure Tobacco use date assessed: 01/27/24 Dental Screening Dental Screen Date: 01/27/24 HPI PE HPI Details substance abuse on Suboxone; compliant [facility] Medical History ADHD Attention deficit disorder IGNACIO (generalized anxiety disorder) Iron deficiency anemia due to chronic blood loss Left ankle pain Left leg pain Migraine Primary insomnia Substance abuse Surgical History History of abdominoplasty History of bilateral carpal tunnel release History of section History of cholecystectomy History of gastric bypass History of tubal ligation Mass of cervix Family History Father No problems noted. Mother No problems noted. Maternal Grandfather Diabetes Other Substance abuse Social History Housing: House Patient Tobacco Use Status: Never used Tobacco Tobacco use type: Cigarette e-Cigarette/Vaping Use: Never Used Second Hand Smoke Exposure: No service: No Current occupational status: employed Cognitive needs: No Hearing needs: No Vision needs: No Questionnaire PHQ-9 Over the last 2 weeks, how often have you been bothered by any of the following problems? 1. Little interest or pleasure in doing things: nearly every day 2. Feeling down, depressed, or hopeless: nearly every day 3. Trouble falling or staying asleep, or sleeping too much: nearly every day 4. Feeling tired or having little energy: nearly every day 5. Poor appetite or overeating: nearly every day 6. Feeling bad about yourself - or that you are a failure or have let yourself or your family down: nearly every day 7. Trouble concentrating on things, such as reading the newspaper or watching television: nearly every day 8. Moving or speaking so slowly that other people could have noticed. Or the opposite - being so fidgety or restless that you have been moving around a lot more than usual: more than half the days 9. Thoughts that you would be better off or of hurting yourself in some way: not at all Total score: 23 Depression Screening Interpretation: Positive Depression Screening Done: Yes 47024 - PHQ-9 Billing: Yes Source: Developed by Drs. Sebastián Dumas, Vida Strauss, Maximo Dow and colleagues, with an educational sherley from [employer]. Thrive Questionnaire Date Thrive assessed: 01/27/24 I am a: Patient What is your living situation today?: I have a steady place to live Within the past 12 months, did the food you bought not last and you didn't have the money to get more?: Sometimes True Within the past 12 months, did you worry whether your food would run out before you got money to buy more?: Sometimes True Do you have trouble paying for medicines?: I choose not to answer this question Do you have trouble getting transportation to medical appointments?: I choose not to answer this question Do you have trouble paying your heating and electricity bill?: I choose not to answer this question Do you have trouble taking care of your child, family member or friend?: Yes Do you have trouble with day-to-day activities such as bathing, preparing meals, shopping, managing finances, etc.?: Yes Are you currently unemployed and looking for a job?: No Are you interested in more education?: No Please select the resources that you would like help with: None Currently or been in a relationship where the following occur: No concerns reported THRIVE Score: 2 AUDIT C Alcohol Use Questionnaire (AUDIT-C) 1. How often do you have a drink containing alcohol?: Never 3. How often do you have six or more drinks on one occasion?: Never Total Score: 0 IGNACIO-7 AMB Questionnaire IGNACIO-7 Date IGNACIO - 7 assessed: 01/27/24 Feeling nervous, anxious, or on edge: 3 = Nearly every day Not being able to stop or control worryin = Nearly every day Worrying too much about different things: 3 = Nearly every day Trouble relaxin = Nearly every day Being so restless that it is hard to sit still: 3 = Nearly every day Becoming easily annoyed or irritable: 3 = Nearly every day Feeling afraid as if something awful might happen: 3 = Nearly every day Total IGNACIO-7 score (0-4 normal; 5-9 mild; 10-14 moderate; 15-21 severe): 21 Source: Developed by Drs. Sebastián Dumas, Vida Strauss, Maximo Dow and colleagues, with an educational sherley from [employer]. IGNACIO-7 Assessment Billing IGNACIO-7 Assessment Tool: IGNACIO-7 Assessment 57108 Review of Systems Const Denies chills, Denies fatigue, Denies headache(s) and Denies weight loss Eyes Denies change in vision, Denies diplopia and Denies eye pain ENT Denies vertigo, Denies dizziness, Denies headache(s) and Denies nasal discharge Card Denies chest pain, Denies rapid heart rate and Denies dyspnea on exertion Resp Denies chest congestion, Denies cough, Denies pain with cough and Denies dyspnea on exertion GI Denies abdominal pain, Denies hematochezia and Denies change in bowel habits Musc Denies myalgias, Denies arthralgias and Denies joint swelling Skin/Breast Denies lesions and Denies unusual bruising Neuro Denies vertigo, Denies dizziness, Denies headache(s) and Denies focal weakness Endo Denies fatigue Physical exam (Primary Care) Vital Signs: Last Vital Signs Pulse 85 06/28/24 14:21 BP 124/66 06/28/24 14:21 Pulse Ox 99 06/28/24 14:21 Oxygen Delivery Method Room Air 06/28/24 14:21 BMI result Body Mass Index 28.0 Tobacco/Smoking Status: Tobacco use Status Tobacco use date assessed 01/27/24 06/28/24 14:27 Patient Tobacco Use Status Never used Tobacco 06/28/24 14:27 Tobacco use type Cigarette 06/28/24 14:27 e-Cigarette/Vaping Use Never Used 06/28/24 14:27 PHQ-9: PHQ-9 Score PHQ-9: Total score 23 06/28/24 14:27 Depression Screening Interpretation: Positive Thrive Assessment: Date of Thrive Assessment Date Thrive assessed 01/27/24 06/28/24 14:27 Currently or been in a relationship where the following occur: No concerns reported Const General: cooperative, healthy appearing and no acute distress Orientation/consciousness: oriented to person, oriented to place and oriented to time HENMT Head: Yes normal to inspection, Yes normocephalic and Yes atraumatic Mouth: Normal oral and palatal mucosa present and tongue normal Throat: Yes posterior oropharynx normal and Yes uvula midline Eyes General: appearance normal, both eyes and all related structures Neck Neck: Yes normal visual inspection, Yes full ROM and Yes no lymphadenopathy Thyroid: Thyroid normal Carotids: normal carotid upstroke Chest Chest palpation & inspection: normal inspection of the chest Resp Effort & Inspection: normal respiratory effort and able to speak in complete sentences Auscultation: clear to auscultation bilaterally Cardio Jugular venous distension: no JVD Palpation: normal PMI Rate: regular rate Rhythm: regular rhythm Heart sounds: S1 normal heart sound present and S2 normal heart sound present GI Inspection: Yes normal to inspection Palpation (GI): Soft to palpation and No hepatosplenomegaly present Auscultation: normal bowel sounds General: Yes no CVA tenderness Back/Spine/Pelvis Back: no CVA tenderness Skin General skin exam: no rashes or lesions noted Neuro General: oriented to person, oriented to place and oriented to time Extrem General: Yes normal to inspection and Yes full ROM Coding Level of Care Code Est Pt Prev Care 40-64y(33155) Diagnoses Physical exam Z00.00 Substance abuse F19.10 Additional Codes IGNACIO-7 Assessment Billing - IGNACIO-7 Assessment Tool: IGNACIO-7 Assessment 17087 ([id number]) Assessment & Plan Assessment & Plan (1) Physical exam: Code(s): Z00.00 - Encounter for general adult medical examination without abnormal findings Category: Medical Plan: stable; do labs (2) Substance abuse: Code(s): F19.10 - Other psychoactive substance abuse, uncomplicated Category: Medical Plan: stable; same rx Medications: New sulfamethoxazole-trimethoprim 800-160 mg (Bactrim DS) 1 tab PO BID 10 tabs 0RF
== END 2024-06-28 14:40 | disposition home or self-care (01) ==
PROVIDERS: PCP Internal Medicine; Visit Provider Internal Medicine
DX: Z00.00 Encounter for general adult medical examination without abnormal findings (principal); F19.10 Other psychoactive substance abuse, uncomplicated

== ENCOUNTER → 2024-06-28 14:15 | Outpatient (BNVA) | payer MEDICARE, SELFPAY | PROVIDERS: PCP Internal Medicine; Visit Provider Internal Medicine | DX: Z00.00 Encounter for general adult medical examination without abnormal findings (principal); F19.10 Other psychoactive substance abuse, uncomplicated | CPT/HCPCS: 96127; 99396 ==

== ENCOUNTER 2024-07-12 13:39 | Outpatient (AMB) | payer MEDICARE, SELFPAY ==
--- NOTE | 2024-07-12 13:53 | MHC.OFFVIS ---
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5 mg (Suboxone) 2 film buccal DAILY cholecalciferol (vitamin D3) 25 mcg PO DAILY dextroamphetamine-amphetamine 30 mg 1 tab PO DAILY ferrous sulfate 325 mg PO DAILY lemborexant (Dayvigo) 10 mg PO BEDTIME multivitamin with folic acid 400 mcg (Daily-Kate (with folic acid)) 1 tab PO DAILY HPI Comments Details: I was consulted to see Mary in cardiology consultation today for precordial chest pain. She is a 43-year-old female with prior history of anxiety, PTSD, substance abuse in the past currently on Suboxone therapy. Patient for the last couple of months been having intermittent precordial chest pain which she describes as squeezing/pressure sometimes sharp chest pain. There is no clear trigger associated with the chest pain. Pain can happen at any time including resting or exercising. Symptoms can last for few hours usually subside on their own. He had no associated symptoms of shortness of breath, lightheadedness, syncope. No prolonged palpitation irregular heartbeat. She says she was told in the [facility] ER that she had issues with the right ventricular function and vena cava dysfunction. Not make clinical sense. Pain can be reproducible with touch and/or deep breathing. She is scheduled to undergo an echocardiogram near future through office. She had also noted to be significantly anemic and she says this has happened ever since she had a gastric bypass surgery done. 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 [facility] Medical History Attention deficit disorder Substance abuse Iron deficiency anemia due to chronic blood loss Primary insomnia IGNACIO (generalized anxiety disorder) Left ankle pain Left leg pain ADHD Migraine Surgical History Mass of cervix History of bilateral carpal tunnel release History of abdominoplasty History of cholecystectomy History of tubal ligation History of section History of gastric bypass Family History Father No problems noted. Mother No problems noted. Maternal Grandfather Diabetes Other Substance abuse Social History Housing: House Patient Tobacco Use Status: Never used Tobacco Tobacco use type: Cigarette e-Cigarette/Vaping Use: Never Used Second Hand Smoke Exposure: No service: No Current occupational status: employed Cognitive needs: No Hearing needs: No Vision needs: No Review of Systems Const Denies chills, Denies daytime sleepiness, Denies fatigue, Denies fever(s), Denies frequent falls, Denies poor appetite, Denies snoring, Denies stops breathing during sleep, Denies weakness, Denies weight gain and Denies weight loss Eyes Denies loss of vision ENT Denies dizziness and Denies hearing loss Card Denies chest pain, Denies claudication, Denies leg edema, Denies lightheadedness, Denies palpitations, Denies dyspnea, Denies dyspnea on exertion and Denies orthopnea Resp Denies cough, Denies excessive phlegm production, Denies dyspnea, Denies dyspnea on exertion, Denies snoring and Denies wheezing GI Denies abdominal pain, Denies hematochezia, Denies change in bowel habits, Denies nausea and Denies vomiting Denies urinary frequency and Denies dysuria Musc Denies arthralgias, Denies muscle weakness, Denies numbness and Denies other (frequent falls) Skin/Breast Denies nail changes and Denies rash Neuro Denies Abnormal speech present, Denies dizziness, Denies frequent falls, Denies loss of vision, Denies memory loss, Denies numbness and Denies weakness Psych Denies depression and Denies memory loss Endo Denies fatigue and Denies palpitations Scott/Lymph Reports easy bruising and Reports other (anemia) Aller/Immun Denies wheezing Physical Exam Vital Signs: Last Vital Signs Pulse 83 07/12/24 13:54 BP 120/82 07/12/24 13:54 BMI result Body Mass Index 30.4 Const General: cooperative, comfortable, no acute distress, alert, awake, anxious and poor hygiene Nutritional Appearance: overweight Orientation/consciousness: patient oriented x3 Limitations: no limitations HEENT Head: Yes normocephalic and Yes atraumatic Neck Neck: Yes trachea midline, Yes supple and Yes no JVD Resp Effort & Inspection: normal respiratory effort Auscultation: clear to auscultation bilaterally Cardio Jugular venous distension: no JVD Palpation: normal PMI Rate: regular rate Rhythm: regular rhythm Heart sounds: S1 normal heart sound present, S2 normal heart sound present, no click, no gallops and no murmurs GI Auscultation: normal bowel sounds Skin General skin exam: no rashes or lesions noted Neuro General: patient oriented x3 and no focal motor deficits Speech: No Abnormal speech present Extrem General: Yes no clubbing, cyanosis or edema Psych Appearance: grossly normal Affect: Anxious affect present Office Procedures EKG Details: EKG shows normal sinus rhythm with poor R-wave progression otherwise normal EKG [id number], Complete Assessment & Plan Assessment & Plan (1) Atypical chest pain: Code(s): R07.89 - Other chest pain Plan: Atypical chest pain young woman without any significant risk factors. Likelihood of myocardial ischemia is low. However given her consistent and significant symptoms will pursue treadmill stress test to evaluate for myocardial ischemia. Low likelihood of myocardial ischemia was discussed. More likely this is suggestive of musculoskeletal discomfort either fibromyalgia and/or costochondritis. Echocardiogram has been requested. If these tests are within normal limits no further workup is indicated. Will follow up in the clinic if need be. Thank you for allowing me to partake in his care Coding Level of Care Code New Pt Level 3 (45756) Diagnoses Atypical chest pain R07.89 CPT Codes EKG - CPT: [id number], Complete ([id number])
[2024-07-12 13:54] VITALS: BP 120/82; PULSE 83; BMI 30.4
== END 2024-07-12 14:21 | disposition home or self-care (01) ==
PROVIDERS: PCP Internal Medicine; Visit Provider Internal Medicine Cardiovascular Disease
DX: R07.89 Other chest pain (principal)
CPT/HCPCS: 93010; 99203

== ENCOUNTER → 2024-07-12 13:39 | Outpatient (BNVA) | payer MEDICARE, SELFPAY | PROVIDERS: PCP Internal Medicine; Visit Provider Internal Medicine Cardiovascular Disease | DX: R07.89 Other chest pain (principal); D50.0 Iron deficiency anemia secondary to blood loss (chronic); Z79.899 Other long term (current) drug therapy; Z51.81 Encounter for therapeutic drug level monitoring | CPT/HCPCS: 93005; 99202 ==

== ENCOUNTER 2024-07-28 13:21 | Outpatient (REF) | payer MEDICARE, MEDICAID, SELFPAY ==
[2024-07-28 13:42] LABS: MANUAL DIFF FLAG NO
[2024-07-28 13:48] LABS: Basophils Percent Auto 0.6 % (0-2); Eosinophils Absolute Auto 0.1 X10*3/uL (0.0-0.4); Eosinophils Percent Auto 1.7 % (0-4); Hematocrit 32.9 % (37.0-47.0); Hemoglobin 9.3 g/dl (12.0-16.0); Imm Gran Abs Auto 0.01 X10*3/uL (0.00-0.03); Imm Gran Pct Auto 0.2 % (0.0-0.4); Lymphocytes Percent Auto 37.1 % (20-40); Mean Corpuscular HGB Conc 28.3 g/dl (31.0-35.0); Mean Corpuscular Hemoglobin 20.7 pg (27.0-33.0); Mean Corpuscular Volume 73.1 fL (80.0-98.0); Mean Platelet Volume 9.4 fL (9.4-12.3); Monocytes Absolute Auto 0.3 X10*3/uL (0.1-1.2); Monocytes Percent Auto 6.1 % (2-11); Neutrophils Absolute Auto 2.9 x10*3/uL (2.0-8.3); Neutrophils Percent Auto 54.3 % (45-73); Platelet Count 210 X10*3/uL (160-400); Red Cell Distribution Width 23.6 % (11.0-16.0); White Blood Count 5.4 X10*3/uL (4.8-10.8)
== END 2024-07-28 13:22 | disposition home or self-care (01) ==
LOC: HO.LAB 13:21
PROVIDERS: Nurse Practitioner Family; PCP Internal Medicine; Visit Provider Nurse Practitioner Family
DX: D64.9 Anemia, unspecified (principal)
CPT/HCPCS: 36415; 85025

== ENCOUNTER → 2024-08-02 08:49 | Outpatient (REF) | payer MEDICARE, MEDICAID, SELFPAY ==
--- NOTE | 2024-08-02 08:55 | CA_ITS ---
Acquisition Time: 2024-08-02 09:03:17 Total Exercise Time: 00:04:15 Test Indications: CP Medications: SEE H Protocol: ALICIA Max HR: 137 BPM 76% of Pred: 179 BPM Max BP: 180/080 mmHG Max Work Load: 4.7 METS Exercise Stress Test with exercise 4 mins 15 seconds of Alicia Protocol held at stage 1, achieving 74% MPHR, with chest tightness 2/10 at baseline that got worse to 9/10 with mild SOB, with isolated PACs isolated PVC and nonconducted PAC, with normotensive response with exercise. With nondiagnostic EKG due to suboptimal HR. In recovery, chest tightness returned to baseline. Test reviewed with Dr. Qiu. Will order a pharmacological nuclear stress test for further evaluation. Referred By: Shahab Qiu Overread By: SALVATORE BETTENCOURT
== END ==
LOC: HO.CARD 08:49
PROVIDERS: PCP Internal Medicine; Visit Provider Internal Medicine Cardiovascular Disease
DX: R07.9 Chest pain, unspecified (principal)
CPT/HCPCS: 93017

== ENCOUNTER → 2024-08-02 08:55 | Outpatient (BNV) | payer MEDICARE, MEDICAID, SELFPAY | PROVIDERS: PCP Internal Medicine; Visit Provider Nurse Practitioner Family | DX: R07.9 Chest pain, unspecified (principal); R06.02 Shortness of breath; I49.1 Atrial premature depolarization; I49.3 Ventricular premature depolarization | CPT/HCPCS: 93016; 93018 ==

== ENCOUNTER → 2024-08-05 13:41 | Outpatient (REF) | payer MEDICARE, MEDICAID, SELFPAY ==
--- NOTE | 2024-08-05 13:44 | CA_ITS ---
Transthoracic Echocardiogram Patient (Last, First, Middle): Mary Handley L Gender: Female Date of : 1980 Age: 43 Procedure Date: 08/05/2024 Procedure Type: Transthoracic Echocardiogram Location: OP Height: 165.1 cm Weight: 76.2 kg BSA: 1.84 m2 Heart Rate: 76 bpm BP: 122 / 76 mmHg Case Assistant: KERA Referring MD: Monica Esquivel PA-C Threader: Shahab Qiu MD Symptoms: R60.0 - Localized edema Study Quality: Adequate ECG Rhythm: Sinus Conclusions: - Normal study Findings Left Ventricle Normal left ventricular size, thickness, and systolic function. The visually estimated ejection fraction is between 65-70%. Diastolic function is normal for age. Right Ventricle Normal right ventricular cavity size and systolic function. Atria Both atria are normal in size. There is no evidence of interatrial shunt. Aortic Valve Normal aortic valve structure and function. There is no aortic valve stenosis. There is no aortic valve regurgitation. Mitral Valve Normal mitral valve structure and function. There is trace mitral valve regurgitation. There is no mitral valve stenosis. Pulmonic Valve The pulmonic valve is likely normal. Tricuspid Valve Normal tricuspid valve structure. There is trace tricuspid valve regurgitation. The right ventricular systolic pressure is normal. The right ventricular systolic pressure is 24 mmHg. Normal right atrial pressure. There is no evidence of pulmonary hypertension. Great Vessels All visible segments of the aorta are normal in size. The pulmonary artery was not well visualized. Venous The inferior vena cava is normal in size and collapses greater than 50% with inspiration. Pericardium/Pleural There is no evidence of pericardial effusion. Measurements 2D Linear Measurements IVSd: 0.96 0.6-0.9/0.6-1.0 cm LVIDd: 5.02 3.9-5.3/4.2-5.9 cm LVIDd Index: 2.73 2.4-3.2/2.2-3.1 cm/m2 LVIDs: 2.95 2.0-3.6 cm LVPWd: 0.74 0.7-1.1 cm LA Diam: 4.10 2.7-3.8/3.0-4.0 cm LAIDs Index: 2.23 1.5-2.3 cm/m2 LV Mass: 183.90 67-162/88-224 g LV Mass Index: 99.94 43-95/49-115 g/m2 LVOT Diam: 1.90 3.0+(-)1.3 cm 2D Systolic Function EF 4C: 68.70 >55% EF 2C: 74.10 >55% EF BiP: 71.10 >55% Mitral Valve MV Pk E: 1.10 MV PK A: 0.71 MV Decel Time: 205.00 E/A: 1.50 E'Lateral: 15.30 E'Medial: 11.50 E/E' Med: 9.60 E/E' Lat: 7.20 PHT: 60.00 MVA PHT: 3.67 Decel [place]: 5.36 Aortic Valve AoV Pk [place]: 1.52 AoV Pk Grad: 9.00 LARA: 2.95 LVOT LVOT Pk [place]: 1.62 LVOT Mn [place]: 0.94 LVOT VTI: 0.28 LVOT Pk Grad: 10.00 LVOT Mn Grad: 5.00 LVOT Diam: 1.90 LVOT Area: 2.84 Diastolic Function MV Pk E: 1.10 MV Pk A: 0.71 E/A: 1.50 E'Medial: 11.50 E/E' Med: 9.60 E' Laterial: 15.30 E/E' Lat: 7.20 Right Ventricle TAPSE (mm): 29.10 TVS' [place]: 15.10 Tricuspid Valve TR Pk [place]: 2.31 TR Pk Grad: 21.00 RA Press: 3.00 RVSP: 24.00 Great Vessels Aorta Sinus of Valsalva: 2.90 2.0-3.5 cm Ao Asc: 3.10 2.1-3.4 cm Pulmonary Veins Pulm Vein S/D 1.00 Pulmonary Valve PV Pk [place]: 1.21 Peak PV Grad: 6.00 Updated in Other Vendor System with Status of Final Shahab Qiu MD electronically signed on 08/05/2024 3:35:07 PM with status of Final
== END ==
LOC: HO.CARD 13:41
PROVIDERS: PCP Internal Medicine
DX: R60.0 Localized edema (principal); D50.0 Iron deficiency anemia secondary to blood loss (chronic)
CPT/HCPCS: 93306

== ENCOUNTER → 2024-08-05 13:44 | Outpatient (BNV) | payer MEDICARE, MEDICAID, SELFPAY | PROVIDERS: PCP Internal Medicine; Visit Provider Internal Medicine Cardiovascular Disease | DX: I34.0 Nonrheumatic mitral (valve) insufficiency (principal) | CPT/HCPCS: 93306 ==

== ENCOUNTER 2024-08-24 09:39 | Outpatient (AMB) | payer MEDICARE, MEDICAID, SELFPAY ==
--- NOTE | 2024-08-24 09:40 | MHC.PC.OV ---
Vital Signs 08/24/24 09:42 Height 5 ft 5 in Weight 177 lb BMI 29.5 BP 128/72 Blood Pressure Location Lt brachial Position Sitting Pulse 79 Pulse Source Pulse Oximeter Pulse Oximetry (%) 99 Oxygen Delivery Method Room Air Intake Visit Reasons: Follow up jennifer 08/22 Intake Note: Patient is here to follow up on ADHD, Substance abuse. Pt decline flu shot today. 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: Present Accompanied by: Spouse Allergies Penicillins Allergy (Mild, Verified 08/24/24 09:41) HIVES tramadol [Tramadol] Allergy (Unknown, Verified 08/24/24 09:41) HIVES, seizure, seizures clonidine Adverse Reaction (Mild, Verified 08/24/24 09:41) Seizure Wellbutrin Allergy (Unknown, Uncoded 08/24/24 09:41) Seizure Medication List - Last Reconciled 08/24/24 by Akbar Walton MD alprazolam 0.5 mg PO QID PRN buprenorphine-naloxone 2-0.5 mg (Suboxone) 2 film buccal DAILY cholecalciferol (vitamin D3) 25 mcg PO DAILY dextroamphetamine-amphetamine 10 mg 10 mg PO DAILY dextroamphetamine-amphetamine 30 mg 1 tab PO DAILY ferrous sulfate 325 mg PO DAILY lemborexant (Dayvigo) 10 mg PO BEDTIME multivitamin with folic acid 400 mcg (Daily-Kate (with folic acid)) 1 tab PO DAILY Tobacco use date assessed: 08/24/24 Dental Screening Dental Screen Date: 01/27/24 HPI Follow up jennifer 08/22 HPI Details has been seeing a psychiatrist for ADHD who no longer takes her insurance; needs meds filled [facility] Medical History Attention deficit disorder Substance abuse Iron deficiency anemia due to chronic blood loss Primary insomnia IGNACIO (generalized anxiety disorder) Left ankle pain Left leg pain ADHD Migraine Surgical History Mass of cervix History of bilateral carpal tunnel release History of abdominoplasty History of cholecystectomy History of tubal ligation History of section History of gastric bypass Family History Father No problems noted. Mother No problems noted. Maternal Grandfather Diabetes Other Substance abuse Social History Housing: House Patient Tobacco Use Status: Never used Tobacco Tobacco use type: Cigarette e-Cigarette/Vaping Use: Never Used Second Hand Smoke Exposure: No service: No Current occupational status: employed Cognitive needs: No Hearing needs: No Vision needs: No Questionnaire Thrive Questionnaire Date Thrive assessed: 06/27/24 I am a: Patient What is your living situation today?: I have a steady place to live Within the past 12 months, did the food you bought not last and you didn't have the money to get more?: Sometimes True Within the past 12 months, did you worry whether your food would run out before you got money to buy more?: Sometimes True Do you have trouble paying for medicines?: I choose not to answer this question Do you have trouble getting transportation to medical appointments?: I choose not to answer this question Do you have trouble paying your heating and electricity bill?: I choose not to answer this question Do you have trouble taking care of your child, family member or friend?: Yes Do you have trouble with day-to-day activities such as bathing, preparing meals, shopping, managing finances, etc.?: Yes Are you currently unemployed and looking for a job?: No Are you interested in more education?: No Please select the resources that you would like help with: None Currently or been in a relationship where the following occur: No concerns reported THRIVE Score: 2 IGNACIO-7 AMB Questionnaire IGNACIO-7 Date IGNACIO - 7 assessed: 01/27/24 Source: Developed by Drs. Sebastián Dumas, Vida Strauss, Maximo Dow and colleagues, with an educational sherley from [employer]. Review of Systems Const Denies chills, Denies headache(s) and Denies weight loss ENT Denies headache(s) Card Denies chest pain, Denies syncope, Denies irregular heart rhythm and Denies dyspnea Resp Denies chest congestion, Denies cough and Denies dyspnea GI Denies abdominal pain, Denies change in stool character, Denies nausea and Denies vomiting Musc Denies deformity and Denies joint swelling Neuro Denies syncope and Denies headache(s) Physical exam (Primary Care) Vital Signs: Last Vital Signs Pulse 79 08/24/24 09:42 BP 128/72 11/27/24 09:42 Pulse Ox 99 08/24/24 09:42 Oxygen Delivery Method Room Air 08/24/24 09:42 BMI result Body Mass Index 29.5 Tobacco/Smoking Status: Tobacco use Status Tobacco use date assessed 08/24/24 08/24/24 09:44 Patient Tobacco Use Status Never used Tobacco 08/24/24 09:44 Tobacco use type Cigarette 08/24/24 09:44 e-Cigarette/Vaping Use Never Used 08/24/24 09:44 Thrive Assessment: Date of Thrive Assessment Date Thrive assessed 06/27/24 08/24/24 09:44 Currently or been in a relationship where the following occur: No concerns reported Const General: cooperative, comfortable, no acute distress and alert Neck Neck: Yes no lymphadenopathy Thyroid: Thyroid normal Resp Effort & Inspection: normal respiratory effort Auscultation: clear to auscultation bilaterally Percussion: percussion normal Cardio Jugular venous distension: no JVD Palpation: normal PMI Rate: regular rate Rhythm: regular rhythm Heart sounds: S1 normal heart sound present and S2 normal heart sound present GI Inspection: Yes normal to inspection Palpation (GI): No hepatosplenomegaly present Skin General skin exam: no rashes or lesions noted Extrem General: Yes no clubbing, cyanosis or edema Coding Level of Care Code Est Pt Level 3 (72856) Diagnoses ADHD F90.9 Assessment & Plan Assessment & Plan (1) ADHD: Code(s): F90.9 - Attention-deficit hyperactivity disorder, unspecified type Category: Medical Plan: will refill meds as needed
[2024-08-24 09:42] VITALS: BP 128/72; PULSE 79; O2SAT 99; BMI 29.5
== END 2024-08-24 09:54 | disposition home or self-care (01) ==
PROVIDERS: PCP Internal Medicine; Visit Provider Internal Medicine
DX: F90.9 Attention-deficit hyperactivity disorder, unspecified type (principal)

== ENCOUNTER → 2024-08-24 09:39 | Outpatient (BNVA) | payer MEDICARE, MEDICAID, SELFPAY | PROVIDERS: PCP Internal Medicine; Visit Provider Internal Medicine | DX: F90.9 Attention-deficit hyperactivity disorder, unspecified type (principal) | CPT/HCPCS: 99212 ==

== ENCOUNTER 2025-01-12 13:16 | Outpatient (AMB) | payer MEDICARE, MEDICAID, SELFPAY ==
--- NOTE | 2025-01-12 13:20 | A.OFFPC_ITS ---
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 Accompanied by: Self / Same As Patient Allergies Penicillins Allergy (Mild, Verified 01/12/25 13:40) HIVES tramadol [Tramadol] Allergy (Unknown, Verified 01/12/25 13:40) HIVES, seizure, seizures clonidine Adverse Reaction (Mild, Verified 01/12/25 13:40) Seizure Wellbutrin Allergy (Unknown, Uncoded 01/12/25 13:40) Seizure Medication List - Last Reconciled 01/12/25 by CECI Franco alprazolam 0.5 mg PO QID PRN aripiprazole (Abilify) 2 mg PO DAILY buprenorphine-naloxone 2-0.5 mg (Suboxone) 2 film buccal DAILY cholecalciferol (vitamin D3) 25 mcg PO DAILY cyclobenzaprine 5 mg PO QID PRN desvenlafaxine succinate ER (Pristiq) 25 mg PO DAILY dextroamphetamine-amphetamine 15 mg ER 15 mg PO DAILY ferrous sulfate 325 mg PO DAILY lemborexant (Dayvigo) 10 mg PO BEDTIME prednisone 10 mg PO DIRECTED Tobacco use date assessed: 01/12/25 Dental Screening Dental Screen Date: 01/12/25 Did you have a dental visit in the last 12 months?: Yes Did you have a dental problem in the last 6 months where you did not have access to dental care?: No Was dental information given to patient?: Patient has dentist HPI [facility] 01/08 fell down stairs HPI Details The patient is a 44-year old female f/u after s/p falling down 4 stairs on her left side. The patient went to [facility], MRI with contrast showed L5-S1 protrusion with annular tear. The patient was given the information for [facility], [place], Matheus SHANKAR, Giovani Sánchez. The patient is presenting with left-sided radiculopathy following a recent fall. On January 08, she tripped and fell down four stairs, resulting in a sacral fracture. Since the fall, she reports sharp, shooting pain in her left lower back radiating upwards, likened to a jolting, shock-like sensation that sometimes mocks paralysis on that side. Movements aggravate her symptoms, while she experiences reduced sensation in the left anterior thigh. This sensation discrepancy was noted during a physical examination. Her medical background includes knee osteoarthritis and a history of gastric bypass in 2006. Post-surgery, the patient reports chronic knee pain, possibly due to cartilage wear, exacerbated by a recent weight gain of 35 pounds, a side effect suspected to be from PTSD medication. She has been substance-free for 14.5 years, and previously used Suboxone, which she has successfully tapered off with self-monitoring. Additionally, she experiences challenge in weight management post-gastric bypass, further hampered by limited mobility due to her current condition. [facility] Medical History Attention deficit disorder Substance abuse Iron deficiency anemia due to chronic blood loss Primary insomnia IGNACIO (generalized anxiety disorder) Left ankle pain Left leg pain ADHD Migraine Surgical History Mass of cervix History of bilateral carpal tunnel release History of abdominoplasty History of cholecystectomy History of tubal ligation History of section History of gastric bypass Family History Father No problems noted. Mother No problems noted. Maternal Grandfather Diabetes Other Substance abuse Social History Housing: House Patient Tobacco Use Status: Never used Tobacco Tobacco use type: Cigarette e-Cigarette/Vaping Use: Never Used Second Hand Smoke Exposure: No service: No Current occupational status: employed Cognitive needs: No Hearing needs: No Vision needs: No Questionnaire Thrive Questionnaire Date Thrive assessed: 01/12/25 I am a: Patient What is your living situation today?: I have a steady place to live Within the past 12 months, did the food you bought not last and you didn't have the money to get more?: Never true Within the past 12 months, did you worry whether your food would run out before you got money to buy more?: Never true Do you have trouble paying for medicines?: No Do you have trouble getting transportation to medical appointments?: No Do you have trouble paying your heating and electricity bill?: No Do you have trouble taking care of your child, family member or friend?: No Do you have trouble with day-to-day activities such as bathing, preparing meals, shopping, managing finances, etc.?: Yes Are you currently unemployed and looking for a job?: No Are you interested in more education?: No Please select the resources that you would like help with: None Currently or been in a relationship where the following occur: No concerns reported THRIVE Score: 0 AUDIT C Alcohol Use Questionnaire (AUDIT-C) 1. How often do you have a drink containing alcohol?: Never 3. How often do you have six or more drinks on one occasion?: Never Total Score: 0 Score Reviewed/Action Taken: No IGNACIO-7 AMB Questionnaire IGNACIO-7 Date IGNACIO - 7 assessed: 01/27/24 Source: Developed by Drs. Sebastián Dumas, Vida Strauss, Maximo Dow and colleagues, with an educational sherley from [employer]. Review of Systems Const Denies headache(s) Eyes Denies loss of vision ENT Denies vertigo, Denies dizziness, Denies headache(s) and Denies sore throat Card Denies chest pain, Denies leg edema and Denies lightheadedness Resp Denies cough, Denies hemoptysis and Denies wheezing GI Denies abdominal pain, Denies melena, Denies constipation, Denies diarrhea and Denies vomiting Denies urinary frequency, Denies dysuria and Denies urinary urgency Musc Reports back pain (left side of lower back-reports pain radiates upwards), Denies arthralgias, Denies joint swelling, Reports numbness (Anterior thigh) and Denies tingling Neuro Denies Abnormal speech present, Denies behavioral changes, Denies vertigo, Denies dizziness, Denies headache(s), Denies loss of vision, Denies memory loss, Reports numbness (Anterior thigh) and Denies tingling Psych Denies anxiety, Denies behavioral changes, Denies depression, Denies memory loss and Denies panic attacks Scott/Lymph Denies easy bleeding and Denies easy bruising Aller/Immun Denies wheezing Physical exam (Primary Care) Vital Signs: Last Vital Signs Temp 97.6 F 01/12/25 13:22 Pulse 92 01/12/25 13:22 Resp 18 01/12/25 13:22 BP 112/76 01/12/25 13:22 Pulse Ox 97 01/12/25 13:22 Oxygen Delivery Method Room Air 01/12/25 13:22 BMI result Body Mass Index 31.9 Tobacco/Smoking Status: Tobacco use Status Tobacco use date assessed 01/12/25 01/12/25 13:37 Patient Tobacco Use Status Never used Tobacco 01/12/25 13:37 Tobacco use type Cigarette 01/12/25 13:37 e-Cigarette/Vaping Use Never Used 01/12/25 13:37 Thrive Assessment: Date of Thrive Assessment Date Thrive assessed 01/12/25 01/12/25 13:37 Currently or been in a relationship where the following occur: No concerns reported Const General: healthy appearing, no acute distress, alert and awake Nutritional Appearance: well nourished Orientation/consciousness: oriented to person, oriented to place and oriented to time HENMT Ears: external ears normal General nose exam: Normal external nose present Eyes Conjunctivae: conjunctivae normal Sclerae: sclerae normal Pupils: Equal, round and reactive pupils present Neck Neck: Yes no lymphadenopathy and Yes no JVD Thyroid: Thyroid normal Carotids: no bruits Resp Effort & Inspection: normal respiratory effort and not tachypneic Auscultation: no crackles, no rales, no rhonchi and no wheezes Cardio Rate: regular rate Rhythm: regular rhythm Heart sounds: no murmurs and normal S1 and S2 GI Palpation (GI): Soft to palpation, nontender, no hepatomegaly and no splenomegaly Auscultation: normal bowel sounds Back/Spine/Pelvis Thoracic/Lumbar Spine: lumbar spinal tenderness Skin General skin exam: no rashes or lesions noted and dry skin Neuro General: oriented to person, oriented to place and oriented to time Cranial nerves: Yes Equal, round and reactive pupils present Speech: No Abnormal speech present Gait exam (Neuro): Normal gait present Motor exam (neuro): no tremor noted Extrem Right upper extremity: full ROM Left upper extremity: full ROM Right lower extremity: full ROM; no edema Left lower extremity: full ROM and hip/thigh (Reports sharper sensation than right) Details: other (4/5); no edema Psych Mental Status: mental status grossly normal Speech and movement: Normal speech and movement present Affect: normal affect Attitude: cooperative Thought process: Normal thought process present Coding Level of Care Code Est Pt Level 4 (10577) Diagnoses Status post fall Z91.81 Disc displacement, lumbar M51.26 Numbness of left anterior thigh R20.0 Obesity (BMI 30.0-34.9) E66.811 Time Spent (min) 39 Assessment & Plan Assessment & Plan (1) Status post fall: Code(s): Z91.81 - History of falling Category: Medical (2) Disc displacement, lumbar: Code(s): M51.26 - Other intervertebral disc displacement, lumbar region Category: Medical (3) Numbness of left anterior thigh: Code(s): R20.0 - Anesthesia of skin Category: Medical (4) Obesity (BMI 30.0-34.9): Code(s): E66.811 - Obesity, class 1 Category: Medical Plan The patient will begin treatment with gabapentin 300 mg three times daily to address neural pain linked to the recent fall, starting with nighttime dosing. [id number] analgesics continue for pain control. Physical therapy is slated for January 31, with sessions set for four times weekly across a six-week period to foster recovery and potentially avert the need for surgery. Additionally, a referral to a weight management program aims to assist with post-gastric bypass weight concerns and gain necessary medication coverage. Care is taken to prevent further falls. Regular follow-ups will monitor therapy impact and adjust pain management as needed. Patient was informed and verbally consented to the use of an ambient scribe for clinic note documentation during this visit. Orders: Referrals Medical Weight Management Referral E66.811 - Obesity, class 1 Medications: New gabapentin 300 mg PO TID 90 caps 1RF Patient Instructions: - Begin taking gabapentin 300 mg at night initially to see how it affects you. - Continue using ibuprofen and Tylenol for pain as needed. - Your physical therapy starts on January 31; attend sessions 4 days a week. - Avoid activities that may cause falls or further injury. - Enroll in a weight management program to support weight loss efforts. - Call the office if symptoms worsen or with any questions. - Follow up for pain evaluation and progress.
[2025-01-12 13:22] VITALS: BP 112/76; PULSE 92; RESP 18; TEMP 36.4; O2SAT 97; BMI 31.9
--- OUTSIDE RECORDS SUMMARY | 2025-01-12 16:13 | XMS_ITS | Clinical Summary ---
Author Organization [facility] it Address [address] [place] [address] Care Team Providers Care Emergency Veterinary Assistant Name Role Phone Unavailable Primary Care Provider Unavailabl e Surgical History Surgery Date Site/Laterality Comments GASTRIC BYPASS 03/2007 PROCEDURE: GASTRIC BYPASS FOR OBESIT CARPAL TUNNEL RELEASE 08/06 PROCEDURE: ID NEUROPLASTY &/TRANSPOS MEDIAN NRV CARPAL TUNNE; COMMENT: bilateral Medical History Medical History Date Comments Splenomegaly 07/01/2008 DX:Splenomegaly Morbid obesity (CMS/HCC V24, CMS/HCC V28) DX:Morbid obesity (HCC); COM MENT: s/P gastric bypass, March 2007 Visual disturbance 02/23/2010 DX:Visual dis turbance Family History Medical History Relation Name Comments Depression Mother Thyroid disease Mother Asthma Son 1 Relation Name Status Comments Mother Son 1 Son 2 Social History Tobacco Use Types Packs/Day Years Used Date Smoking Tobacco: Never Smokeless Tobacco: Never Alcohol Use Standard Drinks/Week Comments Not Asked 0 (1 standard drink = 0.6 oz pur e alcohol) Comments Unknown Sex and Gender Information Value Date Recorded Sex Assigned at Not on file Legal Sex Female 7:29 PM EST Gender Identity Not on file Sexual Orientation Not on file Obstetrics History Plan of Treatment Health Maintenance Due Date Last Done Comments Breast Cancer Screening 1982 Hepatitis B Vaccines (1 of 3 - 19+ 3-dose series) 2001 Cervical Cancer Screening: P ap Smear 2003 DTaP,Tdap,and Td Vaccines (2 - Td or Tdap) 10/22/2019 10/22/2009 COVID-19 Vaccine (2023-2 5 season) 2024 Influenza Vaccine (Season Ended) 2025 06/04/2010, 06/28/2008 HIB Vaccines Aged Out No longer eligi ble based on patient's age to complete this topic HPV Vaccines Aged Out No longer eligi ble based on patient's age to complete this topic Hepatitis A Vaccines Aged Out No long er eligible based on patient's age to complete this topic IPV Vaccines Aged Out No longer eligi ble based on patient's age to complete this topic MMR Vaccines Aged Out No longer eligi ble based on patient's age to complete this topic Meningococcal ACWY Vaccine Aged Out N o longer eligible based on patient's age to complete this topic Meningococcal B Vaccine Aged Out No l onger eligible based on patient's age to complete this topic Pneumococcal Vaccine: Pediatrics (0 to 5 Years) and At-Risk Patients (6 to 64 Years) Aged Out No longer eligible b ased on patient's age to complete this topic RSV Immunization Patients Under 20 months Aged Out No longer eligible b ased on patient's age to complete this topic Varicella Vaccines Aged Out No longer eligible based on patient's age to complete this topic
== END 2025-01-12 15:47 | disposition home or self-care (01) ==
LOC: HO.HMCH 13:16
PROVIDERS: PCP Internal Medicine
DX: M51.26 Other intervertebral disc displacement, lumbar region (principal); Z68.31 Body mass index [BMI] 31.0-31.9, adult; E66.811 Obesity, class 1; Z91.81 History of falling; R20.0 Anesthesia of skin

== ENCOUNTER → 2025-01-12 13:16 | Outpatient (BNVA) | payer MEDICARE, MEDICAID, SELFPAY | PROVIDERS: PCP Internal Medicine | DX: M51.26 Other intervertebral disc displacement, lumbar region (principal); R20.0 Anesthesia of skin; E66.811 Obesity, class 1; Z68.31 Body mass index [BMI] 31.0-31.9, adult; Z91.81 History of falling | CPT/HCPCS: 99212 ==

== ENCOUNTER 2025-02-22 15:41 | Outpatient (AMB) | payer MEDICARE, MEDICAID, SELFPAY ==
--- NOTE | 2025-02-22 15:48 | A.OFFPC_ITS ---
Vital Signs 3 02/22/25 15:50 Height 5 ft 5 in Weight 190 lb 2 oz BMI 31.6 BP 120/68 Blood Pressure Location Lt brachial Position Sitting Pulse 76 Pulse Source Pulse Oximeter Temp 97.3 F Temp Source Temporal Artery Scan Pulse Oximetry (%) 99 Oxygen Delivery Method Room Air Intake Visit Reasons: [facility] 02/19 left knee blood clot Intake Note: Patient is here to follow-up after a visit the emergency department at [facility] on 02/18/25 Supervisor Dental Laboratory Required: No Seed Analysis Laboratory Assistant: Present Accompanied by: Spouse Allergies Penicillins Allergy (Mild, Verified 02/22/25 16:20) HIVES tramadol [Tramadol] Allergy (Unknown, Verified 02/22/25 16:20) HIVES, seizure, seizures clonidine Adverse Reaction (Mild, Verified 02/22/25 16:20) Seizure Wellbutrin Allergy (Unknown, Uncoded 02/22/25 16:20) Seizure Medication List - Last Reconciled 02/22/25 by CECI Franco alprazolam 0.5 mg PO QID PRN aripiprazole (Abilify) 2 mg PO DAILY buprenorphine-naloxone 2-0.5 mg (Suboxone) 2 film buccal DAILY cholecalciferol (vitamin D3) 25 mcg PO DAILY cyclobenzaprine 5 mg PO QID PRN desvenlafaxine succinate ER (Pristiq) 25 mg PO DAILY dextroamphetamine-amphetamine 15 mg ER 15 mg PO DAILY ferrous sulfate 325 mg PO DAILY gabapentin 300 mg PO TID lemborexant (Dayvigo) 10 mg PO BEDTIME prednisone 10 mg PO DIRECTED Tobacco use date assessed: 02/22/25 Dental Screening Dental Screen Date: 01/12/25 HPI [facility] 02/19 left knee blood clot 2 HPI0 Details The patient is a 44-year-old female presenting post [facility] ER visit The patient went into the ER with concern of left leg swelling post status post fall She stated that she tripped over a tree root and landing on her left knee on the concrete Initially she had leaning pain in the anterior and inferior element of the knee, but over couple of days there was significant bruising and swelling to the entire anterior lower leg from the knee down through the ankle. The patient underwent an ultrasound, a CT and a x-ray of the left lower leg: Prepatellar soft tissue edema and hematoma measuring up to 4 x 2 cm was noted on imaging otherwise unremarkable images. Patient was noted with some redness around the knee and was treated with cephalexin for a cellulitis. She was encouraged to ice and elevate and rest the leg. Patient reports discontinuing the antibiotics due to GI upset and is wondering if she should be started on a different antibiotics. [facility] Medical History Attention deficit disorder Substance abuse Iron deficiency anemia due to chronic blood loss Primary insomnia IGNACIO (generalized anxiety disorder) Left ankle pain Left leg pain ADHD Migraine Surgical History Mass of cervix History of bilateral carpal tunnel release History of abdominoplasty History of cholecystectomy History of tubal ligation History of section History of gastric bypass Family History Father No problems noted. Mother No problems noted. Maternal Grandfather Diabetes Other Substance abuse Social History Housing: House Patient Tobacco Use Status: Never used Tobacco Tobacco use type: Cigarette e-Cigarette/Vaping Use: Never Used Second Hand Smoke Exposure: No service: No Current occupational status: employed Cognitive needs: No Hearing needs: No Vision needs: No Questionnaire PHQ-9 Over the last 2 weeks, how often have you been bothered by any of the following problems? 1. Little interest or pleasure in doing things: several days 2. Feeling down, depressed, or hopeless: not at all 3. Trouble falling or staying asleep, or sleeping too much: nearly every day 4. Feeling tired or having little energy: more than half the days 5. Poor appetite or overeating: several days 6. Feeling bad about yourself - or that you are a failure or have let yourself or your family down: not at all 7. Trouble concentrating on things, such as reading the newspaper or watching television: not at all 8. Moving or speaking so slowly that other people could have noticed. Or the opposite - being so fidgety or restless that you have been moving around a lot more than usual: not at all 9. Thoughts that you would be better off or of hurting yourself in some way: not at all Total score: 7 Depression Screening Interpretation: Positive Depression Screening Done: Yes Source: Developed by Drs. Sebastián Dumas, Maximo Maurer and colleagues, with an educational sherley from [employer]. Thrive Questionnaire Date Thrive assessed: 02/22/25 I am a: Patient What is your living situation today?: I have a steady place to live Within the past 12 months, did the food you bought not last and you didn't have the money to get more?: I choose not to answer this question Within the past 12 months, did you worry whether your food would run out before you got money to buy more?: I choose not to answer this question Do you have trouble paying for medicines?: Yes Do you have trouble getting transportation to medical appointments?: No Do you have trouble paying your heating and electricity bill?: Yes Do you have trouble taking care of your child, family member or friend?: I choose not to answer this question Do you have trouble with day-to-day activities such as bathing, preparing meals, shopping, managing finances, etc.?: Yes Are you currently unemployed and looking for a job?: No Are you interested in more education?: No Please select the resources that you would like help with: Paying for medicine and Utilities Currently or been in a relationship where the following occur: No concerns reported THRIVE Score: 1 AUDIT C Alcohol Use Questionnaire (AUDIT-C) 1. How often do you have a drink containing alcohol?: Never Total Score: 0 IGNACIO-7 AMB Questionnaire IGNACIO-7 Date IGNACIO - 7 assessed: 02/22/25 Feeling nervous, anxious, or on edge: 3 = Nearly every day Not being able to stop or control worryin = Nearly every day Worrying too much about different things: 3 = Nearly every day Trouble relaxin = Nearly every day Being so restless that it is hard to sit still: 3 = Nearly every day Becoming easily annoyed or irritable: 3 = Nearly every day Feeling afraid as if something awful might happen: 3 = Nearly every day Total IGNACIO-7 score (0-4 normal; 5-9 mild; 10-14 moderate; 15-21 severe): 21 Source: Developed by Vida Joaquin. Carlos A, Maximo Dow and colleagues, with an educational sherley from [employer]. Review of Systems Const Denies headache(s) Eyes Denies loss of vision ENT Denies vertigo, Denies dizziness, Denies headache(s) and Denies sore throat Card Denies chest pain, Reports leg edema (Left leg due to trauma) and Denies lightheadedness Resp Denies cough, Denies hemoptysis and Denies wheezing Musc Reports arthralgias (Left knee and ankle, status post fall), Reports joint swelling (Left knee status post fall), Denies numbness and Denies tingling Skin/Breast Reports erythema (Mild slightly below left patella) Neuro Denies Abnormal speech present, Denies vertigo, Denies dizziness, Denies headache(s), Denies loss of vision, Denies numbness and Denies tingling Scott/Lymph Denies easy bleeding and Denies easy bruising Aller/Immun Denies wheezing Physical exam (Primary Care) Vital Signs: Last Vital Signs Temp 97.3 F 02/22/25 15:50 Pulse 76 02/22/25 15:50 BP 120/68 02/22/25 15:50 Pulse Ox 99 02/22/25 15:50 Oxygen Delivery Method Room Air 02/22/25 15:50 BMI result Body Mass Index 31.6 Tobacco/Smoking Status: Tobacco use Status Tobacco use date assessed 02/22/25 02/22/25 15:55 Patient Tobacco Use Status Never used Tobacco 02/22/25 15:55 Tobacco use type Cigarette 02/22/25 15:55 e-Cigarette/Vaping Use Never Used 02/22/25 15:55 PHQ-9: PHQ-9 Score PHQ-9: Total score 7 02/22/25 16:42 Depression Screening Interpretation: Positive Thrive Assessment: Date of Thrive Assessment Date Thrive assessed 02/22/25 02/22/25 15:55 Currently or been in a relationship where the following occur: No concerns reported Const General: healthy appearing, no acute distress, alert and awake Nutritional Appearance: well nourished Orientation/consciousness: oriented to person, oriented to place and oriented to time HENMT Ears: external ears normal General nose exam: Normal external nose present Eyes Conjunctivae: conjunctivae normal Sclerae: sclerae normal Pupils: Equal, round and reactive pupils present Neck Neck: Yes no lymphadenopathy and Yes no JVD Thyroid: Thyroid normal Carotids: no bruits Resp Effort & Inspection: normal respiratory effort and not tachypneic Auscultation: no crackles, no rales, no rhonchi and no wheezes Cardio Rate: regular rate Rhythm: regular rhythm Heart sounds: no murmurs and normal S1 and S2 General: Yes no CVA tenderness Back/Spine/Pelvis Back: no CVA tenderness Thoracic/Lumbar Spine: No lumbar spinal tenderness Skin General skin exam: dry skin and ecchymosis (Left lower leg status post fall) Full body images: 2 1. Faded-red area-status post fall, was being treated for cellulitis. Does not appear to be infected at this time Neuro General: oriented to person, oriented to place and oriented to time Cranial nerves: Yes Equal, round and reactive pupils present Speech: No Abnormal speech present Gait exam (Neuro): Normal gait present Extrem Right upper extremity: full ROM Left upper extremity: full ROM Right lower extremity: full ROM; no edema Left lower extremity: full ROM, edema, lower leg Details: non-pitting edema and ecchymosis; no deformity and no unusual warmth and ankle Details: tenderness and normal ROM; no swelling Psych Mental Status: mental status grossly normal Speech and movement: Normal speech and movement present Affect: normal affect Attitude: cooperative Thought process: Normal thought process present Coding Level of Care Code Est Pt Level 3 (34247) Diagnoses Left leg pain M79.605 Acute left ankle pain M25.572 Chronicity: acute Hematoma of left lower leg S80.12XA Time Spent (min) 36 Assessment & Plan Assessment & Plan (1) Left leg pain: Code(s): M79.605 - Pain in left leg Category: Medical Plan: Status post fall on concrete that resulted in left leg ecchymosis/swollen. Negative ultrasound, x-ray, and CT, no DVT or fracture noted. Ongoing pain. Continue cyclobenzaprine 5 mg q.i.d. p.r.n., gabapentin 300 mg t.i.d. (2) Left ankle pain: Code(s): M25.572 - Pain in left ankle and joints of left foot Category: Medical Qualifiers: Chronicity: acute Qualified Code(s): M25.572 - Pain in left ankle and joints of left foot Plan: No deformity and ankle. Mild edema, seems to be dependent. Positive pedal pulses positive circulation. Encouraged elevating and icing leg. Continue gabapentin 300 mg t.i.d. and cyclobenzaprine 5 mg q.i.d. p.r.n. (3) Hematoma of left lower leg: Code(s): S80.12XA - Contusion of left lower leg, initial encounter Category: Medical Plan: Patient refused hematoma drainage in ED. Explained that this will reabsorb, but it will take some time. Area has a faded red color but does not appears infected. She was being treated for cellulitis with cephalexin and discontinued due to GI issues. Encouraged the patient to continue monitoring and contact office for any concerns. Discoloration is most likely trauma related. Medications: Refilled 2 alprazolam 0.5 mg PO QID PRN 120 tabs 0RF anxiety
[2025-02-22 15:50] VITALS: BP 120/68; PULSE 76; TEMP 36.3; O2SAT 99; BMI 31.6
--- OUTSIDE RECORDS SUMMARY | 2025-02-22 16:07 | XMS_ITS | Continuity of Care Document ---
Author Organization [facility] Address [address] [place] [id number] Problems Unknown Problems Results No Results Allergies, adverse reactions, alerts No known allergies and adverse reactions Medications Medication Instructions Route Dosage Frequency Start Date Stop Date Indications Status ibuprofen 800 MG Oral Tablet 2024 03:19 PM 01/27 03:19 PM Active lorazepam 1 MG Oral Tablet 2024 03:19 PM 01/27 03:19 PM Active prednisone 10 MG Oral Tablet 2024 03:19 PM 01/27 03:19 PM Active sulfamethoxazole 800 MG / trimethoprim 160 MG Oral Tablet 2024 03:19 PM 01/27 03:19 PM Active acetaminophen 500 MG Oral Tablet 2024 03:19 PM 01/27 03:19 PM Active cholecalciferol 0.025 MG Oral Tablet 2024 03:19 PM 01/27 03:19 PM Active alprazolam 0.5 MG Oral Tablet 2024 03:19 PM 01/27 03:19 PM Active amoxicillin 500 MG Oral Capsule 2024 03:19 PM 01/27 03:19 PM Active cephalexin 500 MG Oral Capsule 2024 03:19 PM 01/27 03:19 PM Active ferrous sulfate 325 MG Oral Tablet 2024 03:19 PM 01/27 03:19 PM Active gabapentin 300 MG Oral Capsule 2024 03:19 PM 01/27 03:19 PM Active prazosin 2 MG Oral Capsule 2024 03:19 PM 01/27 03:19 PM Active amphetamine aspartate 7.5 MG / amphetamine sulfate 7.5 MG / dextroamphetamine saccharate 7.5 MG / dextroamphetamine sulfate 7.5 MG Oral Tablet 2024 03:19 PM 01/27 03:19 PM Active amphetamine aspartate 2.5 MG / amphetamine sulfate 2.5 MG / dextroamphetamine saccharate 2.5 MG / dextroamphetamine sulfate 2.5 MG Oral Tablet 2024 03:19 PM 01/27 03:19 PM Active aripiprazole 2 MG Oral Tablet 2024 03:19 PM 01/27 03:19 PM Active cyclobenzaprine hydrochloride 10 MG Oral Tablet 2024 03:19 PM 01/27 03:19 PM Active 24 HR amphetamine aspartate 3.75 MG / amphetamine sulfate 3.75 MG / dextroamphetamine saccharate 3.75 MG / dextroamphetamine sulfate 3.75 MG Extended Release Oral Capsule 2024 03:19 PM 01/27 03:19 PM Active clonidine hydrochloride 0.1 MG Oral Tablet 2024 03:19 PM 01/27 03:19 PM Active morphine sulfate 15 MG Oral Tablet 2024 03:19 PM 01/27 03:19 PM Active hydroxyzine hydrochloride 25 MG Oral Tablet 2024 03:19 PM 01/27 03:19 PM Active buprenorphine 2 MG / naloxone 0.5 MG Sublingual Film [Suboxone] 2024 03:19 PM 01/27 03:19 PM Active suvorexant 10 MG Oral Tablet [Belsomra] 2024 03:19 PM 01/27 03:19 PM Active 24 HR desvenlafaxine succinate 25 MG Extended Release Oral Tablet 2024 03:19 PM 01/27 03:19 PM Active naloxone hydrochloride 40 MG/ML Nasal [place] 2024 03:19 PM 01/27 03:19 PM Active paroxetine hydrochloride 10 MG Oral Tablet 2024 03:19 PM 01/27 03:19 PM Active paroxetine hydrochloride 20 MG Oral Tablet 2024 03:19 PM 01/27 03:19 PM Active paroxetine hydrochloride 30 MG Oral Tablet 2024 03:19 PM 01/27 03:19 PM Active lemborexant 5 MG Oral Tablet [Dayvigo] 2024 03:19 PM 01/27 03:19 PM Active lemborexant 10 MG Oral Tablet [Dayvigo] 2024 03:19 PM 01/27 03:19 PM Active Vital Signs No vital signs reported Social History No smoking Hx information available
== END 2025-02-22 17:02 | disposition home or self-care (01) ==
LOC: HO.HMCH 15:42
PROVIDERS: PCP Internal Medicine
DX: M79.605 Pain in left leg (principal); M25.572 Pain in left ankle and joints of left foot; S80.12XA Contusion of left lower leg, initial encounter

== ENCOUNTER → 2025-02-22 15:41 | Outpatient (BNVA) | payer MEDICARE, MEDICAID, SELFPAY | PROVIDERS: PCP Internal Medicine | DX: M79.605 Pain in left leg (principal); M25.572 Pain in left ankle and joints of left foot; S80.12XA Contusion of left lower leg, initial encounter; W19.XXXA Unspecified fall, initial encounter; Y93.9 Activity, unspecified; Y92.9 Unspecified place or not applicable; Y99.9 Unspecified external cause status | CPT/HCPCS: 96127; 99212 ==

== ENCOUNTER → 2025-03-07 11:04 | Outpatient (BNVA) | payer MEDICARE, MEDICAID, SELFPAY | PROVIDERS: PCP Internal Medicine; Visit Provider Surgery ==

== ENCOUNTER 2025-05-26 08:54 | Outpatient (AMB) | payer MEDICARE, MEDICAID, SELFPAY ==
--- OUTSIDE RECORDS SUMMARY | 2025-05-26 09:45 | XMS_ITS | Continuity of Care Document ---
Author Organization [facility] Address [address] [place] [id number] Problems Unknown Problems Results No Results Allergies, [...] PM Active naloxone hydrochloride 40 MG/ML Nasal [place] 2024 03:19 PM 01/27 03:19 PM Active [...]
--- NOTE | 2025-05-26 12:15 | MHC.OFFVISWM ---
VS Expanded 05/26/25 12:49 Height 5 ft 5 in Weight 199 lb 8 oz BMI 33.2 Body Fat % 36.2 Body Fat Mass 72.4 Fat Free Mass 127.4 Visceral Fat Rating 8 Body Water % 45.6 Body Water Mass 91 Basal Metabolic Rate/Score 1,741 Intake Visit Reasons: [facility] Allergies Penicillins Allergy (Mild, Verified 05/26/25 12:15) HIVES tramadol (Tramadol) Allergy (Unknown, Verified 05/26/25 12:15) HIVES, seizure, seizures clonidine Adverse Reaction (Mild, Verified 05/26/25 12:15) Seizure Wellbutrin Allergy (Unknown, Uncoded 05/26/25 12:15) Seizure Medication List - Last Reconciled 05/26/25 by Landon Smith MD alprazolam 0.5 mg PO QID PRN 30 days aripiprazole (Abilify) 2 mg PO DAILY buprenorphine-naloxone 2-0.5 mg (Suboxone) 2 film buccal DAILY cholecalciferol (vitamin D3) 25 mcg PO DAILY desvenlafaxine succinate ER (Pristiq) 25 mg PO DAILY dextroamphetamine-amphetamine 15 mg ER 15 mg PO DAILY ferrous sulfate 325 mg PO DAILY hydroxyzine HCl 50 mg PO BEDTIME HPI HPI [facility]: Details: Start time: 12.08pm, End time: 12.53pm ?I spent 40 minutes speaking with the patient on the phone plus an additional 5 minutes reviewing and updating records for a total of 45 minutes HPI Comments Details: Previous weight loss efforts: (Pre bypass: 302lbs, lowest: 140lbs) Wakes up: 6.30am, Sleeps: 10-11pm Breakfast: skips Lunch: 11-12pm (ham and cheese sandwich) Dinner: 5-6pm (3-4 tablespoons rice and 3-4 forkfuls pork chops, chicken Snacks: 9am (chicken salad with crackers) Exercise: none, Cycling classes Beverages: Coffee/Tea: none, Soda: Dr. Caban (4 bottles/d), Juice: none, ETOH: none PFSH Medical History (Updated 05/26/25 @ 12:50 by Landon Smith MD) Anxiety Depression PTSD (post-traumatic stress disorder) BMI 33.0-33.9,adult Obesity Attention deficit disorder Substance abuse Iron deficiency anemia due to chronic blood loss Primary insomnia IGNACIO (generalized anxiety disorder) Left ankle pain Left leg pain ADHD Migraine Surgical History Mass of cervix History of bilateral carpal tunnel release History of abdominoplasty History of cholecystectomy History of tubal ligation History of section History of gastric bypass Family History Father No problems noted. Mother No problems noted. Maternal Grandfather Diabetes Other Substance abuse Social History (Updated 03/07/25 @ 11:33 by Linn Albert CMA) Housing: House Alcohol intake: current Alcohol intake frequency: holidays/special occasions only Patient Tobacco Use Status: Never used Tobacco Tobacco use type: Cigarette e-Cigarette/Vaping Use: Never Used Second Hand Smoke Exposure: No service: No Current occupational status: employed Cognitive needs: No Hearing needs: No Vision needs: No Telehealth Telehealth Telehealth Platform: Telephone Location of provider rendering services: practice address Location of patient: address on file Patient Identification confirmed using: Name, : Yes Telehealth method: voice only Patient verbally consented to treatment: Yes Patient verbally consented to billing insurance company: Yes Patient informed of any privacy concerns related to visit: Yes Minutes spent on Phone/Video with Pt.: 45 Assessment & Plan Assessment & Plan (1) Obesity: Code(s): E66.9 - Obesity, unspecified Category: Medical Qualifiers: Obesity type: due to excess calories Obesity classification: adult class 1 (BMI 30 - 34.9) Serious obesity comorbidity presence: without serious comorbidity Body mass index: BMI 33.0-33.9 Qualified Code(s): E66.811 - Obesity, class 1; E66.09 - Other obesity due to excess calories; Z68.33 - Body mass index [BMI] 33.0-33.9, adult Plan: 1. As we discussed, based on your present BMI you are approximately 50lbs overweight. In my opinion, our lifestyle program is your best choice without revisional surgery or use of GLP-1 agonists We discussed in detail the available therapeutic options: 1) our lifestyle intervention program that has an average weight loss of 10% in 3 months.?Some patients continue it for longer and have lost over 50lbs but this is not common. Our lifestyle program can be provided by me or by using our software felix, the [employer] felix. I will provide you with a link to use the felix if you choose to do so. 2) Weight loss medications: these can be used in conjunction with our lifestyle program or you may choose to use them without following a lifestyle program from my program but your own. As we discussed, your insurance requires you to do the lifestyle program for 3 months before they approve the medications. The medication I use more often is called Zepbound and is one shot per week. My office will do the authorizations and we will train you how to use it properly. We also discussed that you can self pay for the first 3 months and the cost is $249 for the first month and $499 for any other month thereafter. These payments go to the drug company directly and not to us. The patient wishes to proceed with GLP-1 therapy. Medications: New tirzepatide (weight loss) (Zepbound) for 4 weeks 2.5 mg (0.5 mL) subcut QWEEK 2 mL 0RF E66.9 - Obesity, unspecified, Z68.33 - Body mass index [BMI] 33.0-33.9, adult
[2025-05-26 12:49] VITALS: BMI 33.2
== END 2025-05-26 12:54 | disposition home or self-care (01) ==
LOC: HO.HBS 08:54
PROVIDERS: PCP Internal Medicine; Visit Provider Surgery
DX: E66.811 Obesity, class 1 (principal); E66.09 Other obesity due to excess calories; Z68.33 Body mass index [BMI] 33.0-33.9, adult
CPT/HCPCS: 99204